=== PATIENT | male | born 1950 | race Caucasian/White ===

== ENCOUNTER → 2023-07-14 11:07 | Outpatient (REF) | payer MEDICARE, OTHER, SELFPAY | LOC: HWRCS 11:07 | PROVIDERS: ATTENDING PHYSICIAN Internal Medicine Interventional Cardiology; FAMILY PHYSICIAN Internal Medicine | DX: I25.2 Old myocardial infarction (principal); I35.0 Nonrheumatic aortic (valve) stenosis; R55 Syncope and collapse | CPT/HCPCS: 93306 ==

== ENCOUNTER → 2023-09-08 14:25 | Outpatient (REF) | payer MEDICARE, OTHER, SELFPAY ==
[2023-09-08 15:49] LABS: % Basophils 1.7 % (0-2); % Eosinophils 0.4 % (0-6); % Immature Granulocytes 0.2 % (0-0.5); % Lymphocytes 30.3 % (20.5-51.1); % Monocytes 12.1 % (1.7-9.3); % Neutrophils 55.3 % (42.2-75.2); Absolute Basophils 0.1 10^3/uL (0-0.2); Absolute Lymphocytes 1.6 10^3/uL (1.2-3.4); Absolute Monocytes 0.6 10^3/uL (0.1-0.6); Absolute Neutrophils 2.9 10^3/uL (1.4-6.5); Hematocrit 35.7 % (39.0-52.0); Hemoglobin 12.3 g/dL (13.0-18.0); Mean Corp Hgb Conc. 34.5 g/dL (33.0-37.0); Mean Corpuscular Hgb 32.2 pg (27.0-31.0); Mean Corpuscular Volume 93.5 fL (80.0-94.0); Mean Platelet Volume 9.2 fL (7.4-10.4); Nucleated Red Blood Cells % 0 % (-); Platelet Count 242 10^3/uL (130-400); Red Blood Cell Count 3.82 10^6/uL (4.70-6.10); Red Cell Dist. Width 11.4 % (11.5-14.5); White Blood Cell Count 5.3 10^3/uL (4.8-10.8)
[2023-09-08 16:05] LABS: ALT (SGPT) 30 U/L (0-50); AST (SGOT) 34 U/L (17-59); Albumin 4.7 g/dl (3.5-5.0); Alkaline Phosphatase 47 U/L (38-126); Blood Urea Nitrogen 18 mg/dl (9-20); Calcium 9.7 mg/dl (8.4-10.2); Carbon Dioxide 25 mmol/L (22-30); Chloride 96 mmol/L (98-107); Glucose 94 mg/dl (70-99); Potassium 4.5 mmol/L (3.5-5.1); Sodium 128 mmol/L (135-145); Total Bilirubin 0.5 mg/dl (0.2-1.3); Total Protein 7.6 g/dl (6.3-8.2); eGFR > 60.00
== END ==
LOC: REG 14:25
PROVIDERS: ATTENDING PHYSICIAN Internal Medicine Cardiovascular Disease; FAMILY PHYSICIAN Internal Medicine
DX: I44.0 Atrioventricular block, first degree (principal); I25.10 Atherosclerotic heart disease of native coronary artery without angina pectoris
CPT/HCPCS: 36415; 80053; 85025

== ENCOUNTER 2023-09-17 08:44 | Day surgery (SDC) | payer MEDICARE, OTHER, SELFPAY ==
[2023-09-17] VITALS (15 sets, daily range): BP systolic 124–164; BP diastolic 64–80; BMI 22.0
--- NOTE | 2023-09-17 12:45 | ITS.CL.PACE ---
Picking Tech - Pacemaker Implant
Pacemaker Implant
Procedure Report:
PACEMAKER IMPLANT REPORT
Primary Care Provider: Dr Wayne Galvan
Primary paper cutting machine operator: Dr Tc Steele
Date of Procedure: September 17, 2023
Procedure:
Implantation of dual-chamber permanent pacemaker utilizing the left bundle branch for conduction system pacing
Indication/Diagnosis:
Non-reversible symptomatic bradycardia due to second atrioventricular block.
After informed consent was obtained, 'time out' was called and confirmed, the patient was prepped and draped in a sterile fashion. Lidocaine with epi was used for local anesthesia. Central venous access was obtained via subclavian venipuncture. An
incision was made along the left chest and a pre-pectoral pocket was formed. Using a Seldinger technique and peel-away sheaths, the pacing leads were placed under fluoroscopic guidance.
Fluoroscopy was used to determine likely anatomic site for left bundle branch pacing. The Medtronic C315 sheath was used to deliver the Medtronic 3830 Selectsecure pacing lead with the helix exposed just exposed from the sheath tip during continuous
monitoring when pacemapping the septum during gentle clockwise rotation to obtain a paced QRS morphology of a W pattern in lead V1. Once the suspected optimal site was identified, lead deployment was performed with several rapid rotations as paced
QRS morphology was intermittently monitored until a paced QRS complex in lead V1 demonstrated development of an R wave (rSR).
Stable VEgm injury current is present throughout lead position and at end of case.
Final unipolar pacing impedance is 720 Ohms
Unipolar pacing threshold is stable at 1 V @ 0.4 ms.
Final conduction system paced QRS complex duration is 108 ms
LVAT is 72 ms and peak V5 -> peak V1 timing is 54 ms
Right atrial lead was placed at the RAA.
Once testing (see below) showed adequate and stable function, the leads were secured using the suture sleeves. The pocket was liberally irrigated with antibiotic solution. The leads were connected to the generator header and the leads and
generator were placed within the pocket. Fluoroscopy confirmed stable lead position. The pocket was closed in the typical fashion.
Fluoroscopy was used to guide lead placement. Fluoroscopic exposure 4.2 min, 8.94 mGy, 1.09 DAP
IMPLANTS:
Medtronic [id number], SN: [id number], Left Pectoral
RA: Medtronic 5076-45, SN: [id number], RAA
RV: Medtronic 3830 , SN:[id number], Interventricular septum at LBB
DEVICE TESTING:
Sensing: RA 1.6 mV, RV 4 mV
Capture: RA 0.75 V@0.4ms, RV 0.25 V@0.4ms (unipolar via the device)
Ohms: RA 589, RV 570 (unipolar via the device)
FINAL PROGRAMMING
Memo Pacing: DDDR 60-130 ppm
COMPLICATIONS:
None
CONCLUSIONS:
1: Successful implant of dual chamber permanent pacemaker utilizing Left Bundle Branch conduction system capture for pacing. Overall findings are most consistent with LBB capture.
RECOMMENDATIONS:
1. Post-op care (tele, CXR, IV abx)
2. In-Office wound check in 5-7 days
Copy to:
Dr Wayne Galvan
Dr Tc Steele
--- NOTE | 2023-09-17 15:31 | W.PN.UPDATE ---
Update Note
Progress Note Update
73 yo WM s/p PPM (same day). He feel good, no cp, sob, radha diet, EKG AV dual paced, L CW Aquacel with pressure dressing in place. CXR no PTX. He will continue ASA/Plavix. Activity restrictions reviewed. He has inc check in 1 week. He will get one
dose of Ancef prior to d/c home at 4pm.
CONCLUSIONS:
1: Successful implant of dual chamber permanent pacemaker utilizing Left Bundle Branch conduction system capture for pacing. Overall findings are most consistent with LBB capture.
RECOMMENDATIONS:
1. Post-op care (tele, CXR, IV abx)
2. In-Office wound check in 5-7 days
Copy to:
Dr Wayne Galvan
Dr Tc Steele
[2023-09-17] MEDS: ANCEF 5 IV (16:09)
== END 2023-09-17 16:15 | disposition home or self-care (01) ==
LOC: CATH 08:44
PROVIDERS: ATTENDING PHYSICIAN Internal Medicine Cardiovascular Disease; FAMILY PHYSICIAN Internal Medicine; OTHER PHYSICIAN Internal Medicine Interventional Cardiology
DX: I44.1 Atrioventricular block, second degree (principal); I10 Essential (primary) hypertension; I25.2 Old myocardial infarction; R55 Syncope and collapse; Z79.02 Long term (current) use of antithrombotics/antiplatelets; I25.10 Atherosclerotic heart disease of native coronary artery without angina pectoris; Z95.5 Presence of coronary angioplasty implant and graft; M51.36 Other intervertebral disc degeneration, lumbar region; Z87.891 Personal history of nicotine dependence
CPT/HCPCS: 33208; 71045; 93005; C1769; C1785; C1892; C1898; Q9967

== ENCOUNTER → 2023-10-22 14:26 | Outpatient (REF) | payer MEDICARE, OTHER, SELFPAY ==
[2023-10-22 15:57] LABS: Osmolality Urine 601 mOsm/kg (300-900)
[2023-10-22 16:04] LABS: Blood Urea Nitrogen 18 mg/dl (9-20); Calcium 9.8 mg/dl (8.4-10.2); Carbon Dioxide 27 mmol/L (22-30); Chloride 100 mmol/L (98-107); Glucose 95 mg/dl (70-99); Potassium 4.3 mmol/L (3.5-5.1); Sodium 136 mmol/L (135-145); eGFR > 60.00
[2023-10-22 16:14] LABS: Urine Sodium 94 mmol/L (30-90)
[2023-10-22 16:36] LABS: TSH Reflex To Free T4 0.94 uIU/ml (0.47-4.68)
== END ==
LOC: REG 14:26
PROVIDERS: ATTENDING PHYSICIAN Internal Medicine Medical Oncology; FAMILY PHYSICIAN Internal Medicine
DX: E87.1 Hypo-osmolality and hyponatremia (principal)
CPT/HCPCS: 36415; 80048; 82570; 83935; 84300; 84443

== ENCOUNTER 2023-12-29 12:56 | Emergency (ER) | payer MEDICARE, OTHER, SELFPAY ==
[2023-12-29 12:59] VITALS: BP 157/97
[2023-12-29 13:18] LABS: % Basophils 1.6 % (0-2); % Eosinophils 2.2 % (0-6); % Immature Granulocytes 0.2 % (0-0.5); % Lymphocytes 23.9 % (20.5-51.1); % Neutrophils 59.1 % (42.2-75.2); Absolute Basophils 0.1 10^3/uL (0-0.2); Absolute Eosinophils 0.1 10^3/uL (0-0.7); Absolute Lymphocytes 1.2 10^3/uL (1.2-3.4); Absolute Monocytes 0.6 10^3/uL (0.1-0.6); Absolute Neutrophils 2.9 10^3/uL (1.4-6.5); Hematocrit 34.2 % (39.0-52.0); Hemoglobin 12.4 g/dL (13.0-18.0); Mean Corp Hgb Conc. 36.3 g/dL (33.0-37.0); Mean Corpuscular Hgb 32.9 pg (27.0-31.0); Mean Corpuscular Volume 90.7 fL (80.0-94.0); Mean Platelet Volume 8.4 fL (7.4-10.4); Nucleated Red Blood Cells % 0 % (-); Platelet Count 236 10^3/uL (130-400); Red Blood Cell Count 3.77 10^6/uL (4.70-6.10); Red Cell Dist. Width 11.3 % (11.5-14.5); White Blood Cell Count 4.9 10^3/uL (4.8-10.8)
[2023-12-29 13:36] LABS: ALT (SGPT) 26 U/L (0-50); AST (SGOT) 40 U/L (17-59); Albumin 4.9 g/dl (3.5-5.0); Alkaline Phosphatase 48 U/L (38-126); Blood Urea Nitrogen 16 mg/dl (9-20); Calcium 9.9 mg/dl (8.4-10.2); Carbon Dioxide 28 mmol/L (22-30); Chloride 96 mmol/L (98-107); Glucose 92 mg/dl (70-99); Potassium 4.4 mmol/L (3.5-5.1); Sodium 131 mmol/L (135-145); Total Bilirubin 0.6 mg/dl (0.2-1.3); Total Protein 7.9 g/dl (6.3-8.2); eGFR > 60.00
[2023-12-29 13:41] LABS: Troponin I < 0.012 ng/ml
[2023-12-29 13:57] VITALS: BP 179/97
[2023-12-29 14:00] VITALS: BP 154/84
[2023-12-29 15:00] VITALS: BP 137/75
--- NOTE | 2023-12-29 15:19 | ED.GENMED ---
History of Present Illness
General
Chief Complaint: Chest Pain
Source: patient and physician (Dr. Wayne Galvan called to say he is sending patient here from his office.)
Exam Limitations: none
Time Seen by Provider: 12/29/23 15:04
History of Present Illness
History of Present Illness:
73-year-old male with history of neuropathy, systolic syndrome, CAD, HTN, HLD, mitral regurg, Aortic stenosis,MA, BPH, anemia, anxiety, pacemaker 09/2023, cardiac cath with stents 07/2015 and 10/2015.
Pt PCP Dr. Jurado called in. Sending pt from office for intermittent chest discomfort past few days, two days ago had near syncopal episode. Patient arrives stating he has had
11 years of intermittent generalized chest discomfort in various areas. He states the episodes have been much less since he got his pacemaker. Patient states 4 days ago after playing tennis he felt similar intermittent chest 'discomfort,
generalized' similar to what he has felt in the past. 2 days ago he had breakfast, got dressed and was ready to go out shopping when he was standing by his front door and he felt like he was going to faint. His took him and sat him down and
he states he felt better after sitting down and drinking some electrolyte water. He states the whole episode lasted just less than a minute as he felt better when he sat down.
He has been waking up in the middle of the night and having difficulty getting back to sleep recently. Today at 3:45 AM he woke up because he 'just did not feel good, it is hard to describe' and he took 2 nitroglycerin tablets and eventually fell
back asleep. He did not have any chest pain or shortness of breath at that time. He has had no N/V/D/sleep. Denies CP, SOB, abd pain.
He did start lifting light weights of 10 pounds a month ago, he has not done any lifting in the past 3 days.
Past History
Past History
ED Past Medical History: CAD, HTN, Hypercholesterolemia, MA and Other (Hyponatremia, MVP, vertigo, BPH, anxiety)
ED Past Surgical History: Cardiac (Cardiac catheterization 07/13/2015 mid RCA stent, Stents X2, MA with stenting x2 04/2022.) and Tonsilectomy
Social History
Tobacco: Former smoker
Alcohol: Occasional
Drug: None
Personal:
Living: with family
Employment: Retired
Family History
Family History: CAD
Review of Systems
Review of Systems
Allergies reviewed?: Yes
All Other Systems: ROS reviewed and negative except as documented in HPI and ROS
Constitutional: Denies fever or fatigue
Respiratory: Denies trouble breathing
Cardiac: Reports chest pain; Denies diaphoresis, palpitations or syncope
ABD/GI: Denies abdominal pain, nausea, vomiting or diarrhea
: Denies dysuria or difficulty voiding
Musculoskeletal: Reports no symptoms
Skin: Reports no symptoms
Neurological: Reports no symptoms
Phy Exam
Physical Exam
Physical Exam:
GENERAL: No acute distress. A&Ox3.
CONSTITUTIONAL: Afebrile.
EYES: Clear, conjunctivae normal
ENMT: moist mucus membranes, Pharynx nl
RESPIRATORY: Regular respirations, nonlabored, lungs clear.
CARDIOVASCULAR: Regular rate and rhythm, no murmurs, no rubs.
GI: Soft, nontender, normal BS
MUSCULOSKELETAL: Moves with ease. Well perfused. No edema
SKIN: Warm, dry, pink
PSYCH: Normal mood and affect. Well kept, interactive and appropriate
NEUROLOGIC: Awake, alert and oriented. No focal neurological deficits
Scores
Heart Score for Chest Pain Patients
STEMI patient?: Not applicable
Course
Orders/Labs/Results
Orders:
Orders
12/29/23 13:05
Electrocardiogram (*1) Urgent
Reason for Study: Chest Pain
EKG- Treatment ONCE
12/29/23 13:12
CMP [Comprehensive Metabolic Panel] Urgent
Complete Blood Count/With Diff Urgent
Troponin I Urgent
12/29/23 15:07
CR Chest - 2 Views Urgent
Comment:
Reason For Exam: chest pain
12/29/23 16:01
Troponin I Urgent
Abnormal Lab Results
12/29/23
13:12
RBC 3.77 L 10^6/uL
(4.70-6.10)
Hgb 12.4 L g/dL
(13.0-18.0)
Hct 34.2 L %
(39.0-52.0)
MCH 32.9 H pg
(27.0-31.0)
RDW 11.3 L %
(11.5-14.5)
Monocytes % 13.0 H %
(1.7-9.3)
Sodium 131 L mmol/L
(135-145)
Chloride 96 L mmol/L
(98-107)
12/29/23 13:12
12/29/23 13:12
Vital Signs
Initial and Last Documented VS:
Initial Vital Signs
Temp Pulse Resp BP Pulse Ox
97.5 F 74 16 157/97 100
12/29/23 12:59 12/29/23 12:59 12/29/23 12:59 12/29/23 12:59 12/29/23 12:59
Last Documented Vital Signs
Temp Pulse Resp BP Pulse Ox
97.5 F 62 17 135/71 100
12/29/23 12:59 12/29/23 17:00 12/29/23 17:00 12/29/23 17:00 12/29/23 17:00
MDM/Problems Addressed
Differential Diagnosis Includes:
ACS, Unstable angina, musculoskeletal pain
MDM/Problems Addressed:
73-year-old male with history of neuropathy, systolic syndrome, CAD, HTN, HLD, mitral regurg, Aortic stenosis,MA, BPH, anemia, anxiety, pacemaker 09/2023, cardiac cath with stents 07/2015 and 10/2015.
Pt PCP Dr. Jurado called in. Sending pt from office for intermittent chest discomfort past few days, two days ago had near syncopal episode. Patient arrives stating he has had
11 years of intermittent generalized chest discomfort in various areas. He states the episodes have been much less since he got his pacemaker. Patient states 4 days ago after playing tennis he felt similar intermittent chest 'discomfort,
generalized' similar to what he has felt in the past. 2 days ago he had breakfast, got dressed and was ready to go out shopping when he was standing by his front door and he felt like he was going to faint. His took him and sat him down and
he states he felt better after sitting down and drinking some electrolyte water. He states the whole episode lasted just less than a minute as he felt better when he sat down.
He has been waking up in the middle of the night and having difficulty getting back to sleep recently. Today at 3:45 AM he woke up because he 'just did not feel good, it is hard to describe' and he took 2 nitroglycerin tablets and eventually fell
back asleep. He did not have any chest pain or shortness of breath at that time. He has had no N/V/D/sleep. Denies CP, SOB, abd pain.
He did start lifting light weights of 10 pounds a month ago, he has not done any lifting in the past 3 days.
EKG atrial paced rhythm, LVH, rate 72
3:00 PM:
CBC with no clinically significant abnormality
CMP with no clinically significant abnormality troponin #1 normal
CXR: NAD
Plan: If second troponin neg, pt stable for discharge. He has a prescheduled appointment with his Manager Library Dr. Steele in 7 days.
Troponin #2 normal. Patient notified he is stable for discharge
Dr. Wayne Galvan updated
*EKG
EKG Intrepretation Date: 12/29/23
Interpretation: abnormal
Heart Rate: 72
Rate: normal
Rhythm: av sequential
Galva: left axis deviation
QRS Pattern: wide non-specific
Ischemia: no ischemia
*Critical Care Note
Total Time (30-74mins, 75-104mins- exclusive of procedures): Not Applicable
ED Attending Note
-
Portions of this chart may have been created with voice recognition software.� Occasional wrong word or��sound alike� substitutions may have occurred due to the inherent limitations of voice recognition software.
Discharge Plan
Departure
Patient Disposition: Home (Routine Discharge)
Date of Disposition: 12/29/23
Time of Disposition: 16:55
Patient with high blood pressure during this ER visit?: No
Condition: Good
Discharge Problem:
Atypical chest pain
Instructions: Chest Pain That Is Not Caused by the Heart (DC)
Prescriptions:
No Action
alprazolam 0.25 mg Tablet
0.125 mg PO BIDPRN PRN (Reason: vertigo or agitated sleep)
ascorbic acid (vitamin C) 500 mg Tablet
500 mg PO HS
nitroglycerin 0.4 mg Tablet, Sublingual
0.4 mg SUBLINGUAL [id number] PRN (Reason: CHEST PAIN)
coenzyme Q10 [CoQ-10] 100 mg Capsule
100 mg PO DAILY
aspirin 81 mg Tablet,Delayed Release (Dr/Ec)
81 mg PO DAILY
Myosedate
1 tab PO HSPRN PRN (Reason: sleep and muscle relaxation)
Praluent Pen 75 mg/mL pen injector
75 mg SC Q2W
acetaminophen 650 mg Tablet Extended Release
1,300 mg PO [id number] PRN (Reason: mild pain)
amlodipine [Norvasc] 2.5 mg tablet
1.25 mg PO HS
gabapentin [Neurontin] 600 mg Tablet
600 - 700 mg PO HS
clopidogrel [Plavix] 75 mg Tablet
75 mg PO QPM
ezetimibe [Zetia] 10 mg Tablet
5 mg PO HS
omega 3-eod-qfn-fish oil [Fish Oil] 1,200 (144-216) mg Capsule
1 cap PO HS
Magnesium Maleate
360 mg PO QHS
zinc 15 mg Tablet
30 mg PO DAILY
Probiotic 50 Billion
1 tab PO DAILY
Vitalmin B Complex Sophia
1 tab PO DAILY
Vitamin D W K1 2000 Iu
2 tab PO DAILY
Wobenzym N
2 tab PO DAILY
Homocysteine Formula 0.8-50-100 mg-mg-mcg Tablet
1 tab PO NOON
Curcumin Evail
400 mg PO DAILY
Referrals:
Tc Steele MD [Active] - Keep scheduled appt
Wayne Galvan MD [Family Provider] -
Activity Restrictions/Additional Instructions:
As we discussed, nothing worrisome in your workup here today
Keep appointment with your green feed attendant next week.
Interventions
Interventions:
*Risk Screen - Suicide Last Done: 12/29/23 14:25
*General Assessment Last Done: 12/29/23 12:59
*Neglect/Abuse Screening Last Done: 12/29/23 14:25
ED- Fall Risk Assessment Last Done: 12/29/23 17:28
*ED COVID-19 Vaccine History Last Done: 12/29/23 12:59
*Nursing Disposition Last Done: 12/29/23 17:28
ED- Cardiac Assessment Last Done: 12/29/23 14:25
Discharge Date and Time
Discharge Date/Time: 12/29/23 17:29
Print Language: [id number]
[2023-12-29 16:00] VITALS: BP 158/83
[2023-12-29 16:48] LABS: Troponin I < 0.012 ng/ml
[2023-12-29 17:00] VITALS: BP 135/71
== END 2023-12-29 17:29 | disposition home or self-care (01) ==
LOC: EMR 12:56
PROVIDERS: Registered Nurse; EMERGENCY PHYSICIAN Emergency Medicine; FAMILY PHYSICIAN Internal Medicine
DX: R55 Syncope and collapse (principal); R07.89 Other chest pain; I10 Essential (primary) hypertension; I35.0 Nonrheumatic aortic (valve) stenosis; F41.9 Anxiety disorder, unspecified; E78.00 Pure hypercholesterolemia, unspecified; N40.0 Benign prostatic hyperplasia without lower urinary tract symptoms; I25.2 Old myocardial infarction; Z95.0 Presence of cardiac pacemaker; Z87.891 Personal history of nicotine dependence; Z79.02 Long term (current) use of antithrombotics/antiplatelets; I25.10 Atherosclerotic heart disease of native coronary artery without angina pectoris; Z88.8 Allergy status to other drugs, medicaments and biological substances
CPT/HCPCS: 99283; 71046; 80053; 84484; 85025; 93005

== ENCOUNTER 2024-02-16 03:58 | Emergency (ER) | payer MEDICARE, OTHER, SELFPAY ==
[2024-02-16 04:03] VITALS: BP 132/76
--- NOTE | 2024-02-16 04:11 | ED.GENMED ---
History of Present Illness
<Preston Durbin DO - Last Filed: 02/16/24 04:49>
General
Chief Complaint: Cardiac Symptoms
Time Seen by Provider: 02/16/24 04:11
<ROCIO Garcia - Last Filed: 02/18/24 05:51>
History of Present Illness
History of Present Illness:
Patient is a 73 year old male with a PMH of CAD and AL presents to the ED with chest pain x 3 hours. The pain woke him up from sleep and says its a dull achy pain. He states it feels different from his last AL in 2021. It was rated a 5/10 and stated
to be generalized throughout the entire chest. He woke up at 1a with chest pain SOB and palpitations and took a nitroglycerin which alleviated symptoms. He then woke up again at 3 and 3:30a and took 2 more nitroglycerin which did not work. The
patient admits to generalized fatigue from not being able to sleep but denies any BLUM abdominal pain nausea dizziness light headedness.
Patient has taken 3 nitroglycerin and 5 aspirin 81mg for his chest pain, and has had 2 STEMI's in 2015 and 2021. He also has a history of CAD. Patient is a former smoker with occasional alcohol use.
Past History
<ROCIO Garcia - Last Filed: 02/18/24 05:51>
Past History
ED Past Medical History: CAD, HTN, Hypercholesterolemia, AL and Other (Hyponatremia, MVP, vertigo, BPH, anxiety)
ED Past Surgical History: Cardiac (Cardiac catheterization 07/13/2015 mid RCA stent, Stents X2, AL with stenting x2 04/2022.) and Tonsilectomy
Social History
Tobacco: Former smoker
Alcohol: Occasional
Drug: None
Personal:
Living: with family
Employment: Retired
Family History
Family History: CAD
Review of Systems
<ROCIO Garcia - Last Filed: 02/18/24 05:51>
Review of Systems
Constitutional: Reports sleep disturbance
Respiratory: Reports trouble breathing
Cardiac: Reports chest pain and palpitations
ABD/GI: Reports no symptoms
Neurological: Reports no symptoms
Phy Exam
<Davidevangelina Gamboa [facility] - Last Filed: 02/18/24 05:51>
Physical Exam
Physical Exam:
see physical
Cardiovascular Exam
Cardiovascular Exam: regular rate/rhythm, no edema, no gallop, no JVD and no murmur
Pulmonary Exam
Pulmonary Exam: lungs clear, no respiratory distress, no rales, chest non tender, no crackles, no rhonchi, no stridor, no wheezing and no cough
Course
<Preston Durbin, DO - Last Filed: 02/16/24 04:49>
Orders/Labs/Results
Orders:
Orders
02/16/24
Electrocardiogram (*1) Stat
Reason for Study: Other
Comment: already done
02/16/24 03:59
Electrocardiogram (*1) Urgent
Reason for Study: Chest Pain
02/16/24 04:00
EKG- Treatment ONCE
02/16/24 04:18
Complete Blood Count/With Diff Urgent
Comprehensive Metabolic Panel Urgent
Troponin I Urgent
02/16/24 06:04
Interrogate Pacemaker- Treatment ONCE
02/16/24 07:45
Troponin I Urgent
Abnormal Lab Results
02/16/24
04:18
RBC 3.66 L 10^6/uL
(4.70-6.10)
Hgb 12.0 L g/dL
(13.0-18.0)
Hct 32.8 L %
(39.0-52.0)
MCH 32.8 H pg
(27.0-31.0)
RDW 11.3 L %
(11.5-14.5)
Absolute Monos (auto) 0.7 H 10^3/uL
(0.1-0.6)
Monocytes % 11.1 H %
(1.7-9.3)
02/16/24 04:18
02/16/24 04:18
Vital Signs
Initial and Last Documented VS:
Initial Vital Signs
Temp Pulse Resp BP Pulse Ox
98 F 62 24 132/76 100
02/16/24 04:03 02/16/24 04:03 02/16/24 04:03 02/16/24 04:03 02/16/24 04:03
Last Documented Vital Signs
Temp Pulse Resp BP Pulse Ox
98 F 60 15 137/76 98
02/16/24 04:03 02/16/24 09:00 02/16/24 09:00 02/16/24 09:00 02/16/24 09:00
<ROCIO Garcia - Last Filed: 02/18/24 05:51>
Orders/Labs/Results
Orders:
Orders
02/16/24
Electrocardiogram (*1) Stat
Reason for Study: Other
Comment: already done
02/16/24 03:59
Electrocardiogram (*1) Urgent
Reason for Study: Chest Pain
02/16/24 04:00
EKG- Treatment ONCE
02/16/24 04:18
Complete Blood Count/With Diff Urgent
Comprehensive Metabolic Panel Urgent
Troponin I Urgent
02/16/24 06:04
Interrogate Pacemaker- Treatment ONCE
02/16/24 07:45
Troponin I Urgent
Abnormal Lab Results
02/16/24
04:18
RBC 3.66 L 10^6/uL
(4.70-6.10)
Hgb 12.0 L g/dL
(13.0-18.0)
Hct 32.8 L %
(39.0-52.0)
MCH 32.8 H pg
(27.0-31.0)
RDW 11.3 L %
(11.5-14.5)
Absolute Monos (auto) 0.7 H 10^3/uL
(0.1-0.6)
Monocytes % 11.1 H %
(1.7-9.3)
02/16/24 04:18
02/16/24 04:18
Vital Signs
Initial and Last Documented VS:
Initial Vital Signs
Temp Pulse Resp BP Pulse Ox
98 F 62 24 132/76 100
02/16/24 04:03 02/16/24 04:03 02/16/24 04:03 02/16/24 04:03 02/16/24 04:03
Last Documented Vital Signs
Temp Pulse Resp BP Pulse Ox
98 F 60 15 137/76 98
02/16/24 04:03 02/16/24 09:00 02/16/24 09:00 02/16/24 09:00 02/16/24 09:00
<Naseem Roberts MD - Last Filed: 02/16/24 08:26>
Orders/Labs/Results
Orders:
Orders
02/16/24
Electrocardiogram (*1) Stat
Reason for Study: Other
Comment: already done
02/16/24 03:59
Electrocardiogram (*1) Urgent
Reason for Study: Chest Pain
02/16/24 04:00
EKG- Treatment ONCE
02/16/24 04:18
Complete Blood Count/With Diff Urgent
Comprehensive Metabolic Panel Urgent
Troponin I Urgent
02/16/24 06:04
Interrogate Pacemaker- Treatment ONCE
02/16/24 07:45
Troponin I Urgent
Abnormal Lab Results
02/16/24
04:18
RBC 3.66 L 10^6/uL
(4.70-6.10)
Hgb 12.0 L g/dL
(13.0-18.0)
Hct 32.8 L %
(39.0-52.0)
MCH 32.8 H pg
(27.0-31.0)
RDW 11.3 L %
(11.5-14.5)
Absolute Monos (auto) 0.7 H 10^3/uL
(0.1-0.6)
Monocytes % 11.1 H %
(1.7-9.3)
02/16/24 04:18
02/16/24 04:18
Vital Signs
Initial and Last Documented VS:
Initial Vital Signs
Temp Pulse Resp BP Pulse Ox
98 F 62 24 132/76 100
02/16/24 04:03 02/16/24 04:03 02/16/24 04:03 02/16/24 04:03 02/16/24 04:03
Last Documented Vital Signs
Temp Pulse Resp BP Pulse Ox
98 F 60 15 137/76 98
02/16/24 04:03 02/16/24 09:00 02/16/24 09:00 02/16/24 09:00 02/16/24 09:00
<ROCIO Garcia - Last Filed: 02/18/24 05:51>
MDM/Problems Addressed
Differential Diagnosis Includes:
unstable angina, CAD, STEMI
MDM/Problems Addressed:
order EKG CBC and cardiac enzymes, give plavix
<Preston Durbin DO - Last Filed: 02/16/24 04:49>
*EKG
Interpreted by ED Provider?: Yes
Interpretation: abnormal (Paced rhythm, normal axis, ST depressions inferiorly, no STEMI)
<ROCIO Garcia - Last Filed: 02/18/24 05:51>
*Critical Care Note
Total Time (30-74mins, 75-104mins- exclusive of procedures): Not Applicable
<Naseem Roberts MD - Last Filed: 02/16/24 08:26>
Update Note
Update Note:
UPDATE (Naseem Roberts MD)
I have seen and evaluated the patient after signout and reviewed all labs and imaging.
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 He
reports that he was having a restless night, was laying in bed at around 1 AM and noticed that he started to have chest pain. He describes a dull aching substernal sensation. He says that it lasted for about 15 to 20 minutes and then he took a
nitroglycerin and he says his symptoms resolved shortly thereafter. He says that he try to get some more rest but around 3 AM his symptoms returned. He says that once again after about 15 to 20 minutes he took a nitroglycerin and this did not help
and then about 15 minutes later he took a second nitroglycerin and this did not help and so he decided to come to the ER to be evaluated. He says that on arrival in the ER he was still having some chest pain but shortly after arrival it resolved
without any additional intervention. Currently on my assessment he is chest pain-free. He says he did have some heavy breathing/shortness of breath associate with the chest pain. No nausea, vomiting, diaphoresis. He had 2 prior stents/MIs�he
says that symptoms are different from his prior MIs in quality�previously says that he felt 'washed out' and that his chest pain was 'more sharp.' He follows with Dr. Steele for cardiology.
Physical exam: Awake alert not in distress. Vital signs normal. No cardiac rubs gallops or murmurs appreciated. Lungs clear to auscultation bilaterally. Extremities warm well-perfused.
Medical Decision Makin-year-old male with medical history as documented presents after chest pain last night. Had an episode at 1 AM that resolved with nitro, recurrence of chest pain at around 3 AM that did not improve after 2 doses of
nitroglycerin, resolved about an hour later shortly after arrival in the ER. Currently chest pain-free. Normal vitals, physical exam as above. EKG shows paced rhythm. Had initial labs sent off including a CBC which showed marginal anemia, CMP
which was unremarkable. His initial troponin is undetectable. Device interrogated and 1 episode of NSVT otherwise unremarkable. Continue to monitor, repeat troponin pending.
Repeat troponin undetectable�2 undetectable troponins rules out acute AL. Has been chest pain-free since shortly after arrival here in the ER. Symptoms atypical for angina and he has not had any exertional symptoms recently. Nevertheless he is
high risk given his medical history--will refer for expedited follow-up of ER chest pain hotline. Patient comfortable this plan. All questions answered.
ED Attending Note
<Preston Durbin, DO - Last Filed: 02/16/24 04:49>
ED Attending Note
Patient seen and examined by attending physician: Yes
I performed the substantive portion of visit, reviewed & personally made and approve the management plan that is documented in note by myself or CEFERINO.: Yes
ED Attending Note:
I have seen and evaluated the patient with a [id number] encounter. I have spoken to the advance practicer provider and involved in the medical history, the physical exam, medical decision making.
Evaluation and management service: agree unless noted differently below.
Results interpretation: agree unless noted differently below.
Focused HPI: 73-year-old male presenting with central chest discomfort and shortness of breath. Woke him up from sleep around 1 AM. He took 1 nitroglycerin and symptoms appear to resolve. Patient was concerned because symptoms returned. Given
his prior history of coronary artery disease with multiple stents, patient got nervous.
Physical exam: Sitting in bed comfortably. Mildly anxious. Heart regular rate and rhythm. No leg edema
Medical Decision Making: EKG appears unchanged from prior. EKG shows T wave inversions and ST depressions inferiorly but appears unchanged from prior. Given his history, will obtain troponin and discussed case with cardiology
Update 4:45AM: Case discussed with [employer] and no acute events noted today
<ROCIO Garcia - Last Filed: 02/18/24 05:51>
-
Portions of this chart may have been created with voice recognition software.� Occasional wrong word or��sound alike� substitutions may have occurred due to the inherent limitations of voice recognition software.
Discharge Plan
Departure
Patient Disposition: Home (Routine Discharge)
Date of Disposition: 02/16/24
Time of Disposition: 08:56
Patient with high blood pressure during this ER visit?: No
Discharge Problem:
Chest pain
Instructions: Chest Pain CBC Follow Up
Prescriptions:
No Action
alprazolam 0.25 mg Tablet
0.125 mg PO BIDPRN PRN (Reason: vertigo or agitated sleep)
ascorbic acid (vitamin C) 500 mg Tablet
500 mg PO HS
nitroglycerin 0.4 mg Tablet, Sublingual
0.4 mg SUBLINGUAL [id number] PRN (Reason: CHEST PAIN)
coenzyme Q10 [CoQ-10] 100 mg Capsule
100 mg PO DAILY
aspirin 81 mg Tablet,Delayed Release (Dr/Ec)
81 mg PO DAILY
Myosedate
1 tab PO HSPRN PRN (Reason: sleep and muscle relaxation)
Praluent Pen 75 mg/mL pen injector
75 mg SC Q2W
acetaminophen 650 mg Tablet Extended Release
1,300 mg PO [id number] PRN (Reason: mild pain)
amlodipine [Norvasc] 2.5 mg tablet
1.25 mg PO HS
gabapentin [Neurontin] 600 mg Tablet
600 - 700 mg PO HS
clopidogrel [Plavix] 75 mg Tablet
75 mg PO QPM
ezetimibe [Zetia] 10 mg Tablet
5 mg PO HS
omega 9-xqf-zji-fish oil [Fish Oil] 1,200 (144-216) mg Capsule
1 cap PO HS
Magnesium Maleate
360 mg PO QHS
zinc 15 mg Tablet
30 mg PO DAILY
Probiotic 50 Billion
1 tab PO DAILY
Vitalmin B Complex [place]
1 tab PO DAILY
Vitamin D W K1 2000 Iu
2 tab PO DAILY
Wobenzym N
2 tab PO DAILY
Homocysteine Formula 0.8-50-100 mg-mg-mcg Tablet
1 tab PO NOON
Curcumin Evail
400 mg PO DAILY
Referrals:
Tc Steele MD [Active] - Follow up in 2-3 days
Wayne Galvan MD [Family Provider] -
Activity Restrictions/Additional Instructions:
Thank you for visiting the Emergency Department at [facility].
1. Please schedule a follow up appointment as directed. Call first thing tomorrow morning to make an appointment.
2. If indicated, please take your medications as instructed and indicated on discharge paperwork.
3. If any of your symptoms do not improve, or persist, or become more severe within 6-12 hours, please return to the emergency department for further care.
4. Please return to the emergency department if you develop a headache, neck pain/stiffness, fever greater than 100.4F, chest pain, shortness of breath, persistent nausea, vomiting, slurred speech, difficulty walking, numbness/tingling, weakness,
signs of infection or any other symptoms that are worrisome to you.
Please call [phone] if you have any questions.
Interventions
Interventions:
*Risk Screen - Suicide Last Done: 02/16/24 04:03
*General Assessment Last Done: 02/16/24 04:20
*Neglect/Abuse Screening Last Done: 02/16/24 04:20
*ED COVID-19 Vaccine History Last Done: 02/16/24 04:20
*Nursing Disposition Last Done: 02/16/24 09:18
ED- Pulmonary Assessment Last Done: 02/16/24 08:22
ED- Cardiac Assessment Last Done: 02/16/24 08:22
Discharge Date and Time
Discharge Date/Time: 02/16/24 09:18
Print Language: SRI LANKAN
[2024-02-16 04:20] VITALS: BMI 22.6
[2024-02-16 04:38] LABS: % Basophils 1.4 % (0-2); % Eosinophils 0.5 % (0-6); % Immature Granulocytes 0.5 % (0-0.5); % Lymphocytes 29.7 % (20.5-51.1); % Monocytes 11.1 % (1.7-9.3); % Neutrophils 56.8 % (42.2-75.2); Absolute Basophils 0.1 10^3/uL (0-0.2); Absolute Lymphocytes 1.8 10^3/uL (1.2-3.4); Absolute Monocytes 0.7 10^3/uL (0.1-0.6); Absolute Neutrophils 3.4 10^3/uL (1.4-6.5); Hematocrit 32.8 % (39.0-52.0); Mean Corp Hgb Conc. 36.6 g/dL (33.0-37.0); Mean Corpuscular Hgb 32.8 pg (27.0-31.0); Mean Corpuscular Volume 89.6 fL (80.0-94.0); Mean Platelet Volume 8.9 fL (7.4-10.4); Nucleated Red Blood Cells % 0 % (-); Platelet Count 233 10^3/uL (130-400); Red Blood Cell Count 3.66 10^6/uL (4.70-6.10); Red Cell Dist. Width 11.3 % (11.5-14.5); White Blood Cell Count 5.9 10^3/uL (4.8-10.8)
[2024-02-16 05:00] LABS: ALT (SGPT) 21 U/L (0-50); AST (SGOT) 33 U/L (17-59); Albumin 4.3 g/dl (3.5-5.0); Alkaline Phosphatase 45 U/L (38-126); Blood Urea Nitrogen 17 mg/dl (9-20); Carbon Dioxide 28 mmol/L (22-30); Chloride 98 mmol/L (98-107); Estimated Creatinine Clearance 75 ml/min; Glucose 90 mg/dl (70-99); Potassium 4.3 mmol/L (3.5-5.1); Sodium 135 mmol/L (135-145); Total Bilirubin 0.4 mg/dl (0.2-1.3); Total Protein 7.2 g/dl (6.3-8.2); eGFR > 60.00
[2024-02-16 05:12] LABS: Troponin I < 0.012 ng/ml
[2024-02-16 06:00] VITALS: BP 144/98
[2024-02-16 07:00] VITALS: BP 156/88
[2024-02-16 08:00] VITALS: BP 131/78
[2024-02-16 08:14] LABS: Troponin I < 0.012 ng/ml
[2024-02-16 09:00] VITALS: BP 137/76
== END 2024-02-16 09:18 | disposition home or self-care (01) ==
LOC: EMR 03:58
PROVIDERS: EMERGENCY PHYSICIAN Student in an Organized Health Care Education/Training Program; FAMILY PHYSICIAN Internal Medicine
DX: R07.89 Other chest pain (principal); I25.10 Atherosclerotic heart disease of native coronary artery without angina pectoris; Z87.891 Personal history of nicotine dependence; Z95.0 Presence of cardiac pacemaker
CPT/HCPCS: 99284; 93288; 80053; 84484; 85025; 93005

== ENCOUNTER → 2024-03-11 07:52 | Outpatient (REF) | payer MEDICARE, OTHER, SELFPAY | LOC: DHCBC/DCA 07:52 | PROVIDERS: ATTENDING PHYSICIAN Nurse Practitioner; FAMILY PHYSICIAN Internal Medicine | DX: R07.9 Chest pain, unspecified (principal) | CPT/HCPCS: 78452; 93017; A9500; J2785 ==

== ENCOUNTER 2024-10-13 14:27 | Inpatient (IN) | payer MEDICARE, OTHER, SELFPAY ==
[2024-10-13 10:42] VITALS: BP 118/73; BMI 23.1
[2024-10-13 11:00] VITALS: BP 117/72
[2024-10-13] MEDS: NITROSTAT (SUBLINGUAL) 0.4 MG SL (11:01)
[2024-10-13 11:06] LABS: % Basophils 1.6 % (0-2); % Eosinophils 0.8 % (0-6); % Immature Granulocytes 0.2 % (0-0.5); % Lymphocytes 32.9 % (20.5-51.1); % Neutrophils 53.5 % (42.2-75.2); Absolute Basophils 0.1 10^3/uL (0-0.2); Absolute Lymphocytes 1.6 10^3/uL (1.2-3.4); Absolute Monocytes 0.5 10^3/uL (0.1-0.6); Absolute Neutrophils 2.6 10^3/uL (1.4-6.5); Hematocrit 31.5 % (39.0-52.0); Hemoglobin 11.1 g/dL (13.0-18.0); Mean Corp Hgb Conc. 35.2 g/dL (33.0-37.0); Mean Corpuscular Hgb 32.4 pg (27.0-31.0); Mean Corpuscular Volume 91.8 fL (80.0-94.0); Mean Platelet Volume 8.8 fL (7.4-10.4); Nucleated Red Blood Cells % 0 % (-); Platelet Count 250 10^3/uL (130-400); Red Blood Cell Count 3.43 10^6/uL (4.70-6.10); Red Cell Dist. Width 11.5 % (11.5-14.5); White Blood Cell Count 4.9 10^3/uL (4.8-10.8)
[2024-10-13 11:14] LABS: ALT (SGPT) 20 U/L (0-50); AST (SGOT) 28 U/L (17-59); Alkaline Phosphatase 31 U/L (38-126); Blood Urea Nitrogen 15 mg/dl (9-20); Calcium 9.6 mg/dl (8.4-10.2); Carbon Dioxide 29 mmol/L (22-30); Chloride 100 mmol/L (98-107); Estimated Creatinine Clearance 66 ml/min; Glucose 119 mg/dl (70-99); Potassium 4.2 mmol/L (3.5-5.1); Sodium 134 mmol/L (135-145); Total Bilirubin 0.4 mg/dl (0.2-1.3); Total Protein 6.8 g/dl (6.3-8.2); eGFR > 60.00
--- NOTE | 2024-10-13 11:14 | ED.GENMED ---
History of Present Illness
General
Chief Complaint: Chest Pain
Source: patient, records and previous hospital records
Exam Limitations: none
Time Seen by Provider: 10/13/24 10:40
Nursing documentation reviewed up to this point in time: agreed with
History of Present Illness
History of Present Illness:
73-year-old male CAD patient Dr. Paz has a pacemaker presents with chest pain onset about a week ago pressure in his chest somewhat reminiscent of his prior angina require stenting, had a for few days and stopped today returned again pressure
in his chest with nausea took 3 sublingual nitro still with 4 out of 10 pain did take 3 extra baby aspirin 911 was called he has a pacemaker
Past History
Past History
ED Past Medical History: CAD, HTN, Hypercholesterolemia, SD and Other (Hyponatremia, MVP, vertigo, BPH, anxiety)
ED Past Surgical History: Cardiac (Cardiac catheterization 07/13/2015 mid RCA stent, Stents X2, SD with stenting x2 04/2022.) and Tonsilectomy
Social History
Tobacco: Former smoker
Alcohol: Occasional
Drug: None
Personal:
Living: with family
Employment: Retired
Family History
Family History: CAD
Review of Systems
Review of Systems
All Other Systems: Not applicable
Constitutional: Reports fatigue; Denies fever
Respiratory: Reports no symptoms
Cardiac: Reports chest pain
ABD/GI: Reports nausea
Phy Exam
Physical Exam
Physical Exam:
Physical Exam
General: no apparent distress, not acutely ill
Neck: No jaundice
Heart: s1/s2 regular rate and rhythm, no murmur. equal radial pulses.
Lungs: no acute respiratory distress. clear bilaterally
Abdomen: Nontender
Neuro: alert and oriented. no focal neurological deficits
Skin: no rash
Psychiatric: well kept. interactive and cooperative
Extremities: no edema.
Scores
Heart Score for Chest Pain Patients
STEMI patient?: No
History: Moderately Suspicious
ECG: Nonspecific Repolarization
Age: >/= 65 years
Risk Factors: >/= 3 Risk Factors or History of CAD
Troponin: </= Normal Limit
Heart Score for Chest Pain Patients: 6
Heart Score Risk: 20.3% MACE over next 6 weeks
Course
Orders/Labs/Results
Orders:
Orders
10/13/24 10:39
EKG [Electrocardiogram (*1)] Urgent
Reason for Study: Chest Pain
EKG- Treatment ONCE
10/13/24 10:48
Complete Blood Count/With Diff Urgent
Comprehensive Metabolic Panel Urgent
PTT Urgent
Troponin I Urgent
10/13/24 10:55
Aspirin 325 mg PO NOW STA
Nitroglycerin Sublingual [Nitrostat (Sublingual)] 0.4 mg SL [id number] PRN
CR Chest Portable - 1 View Urgent
Comment:
Reason For Exam: cp
Reason Study Needs to be Portable: Patient Unstable
10/13/24 11:25
CARDIOLOGY CONSULT Urgent
Consulting Provider: Codey Andrews
Was physician already notified: Yes
10/13/24 12:12
Echo 2D MMode Color/Doppler Routine
Reason for Study: CP
10/13/24 12:43
Complete Blood Count/No Diff Urgent
Comment: Obtain baseline before beginning heparin infusion if not already collected
PTT Urgent
Comment: Obtain baseline before beginning heparin infusion if not already collected
Pharmacy Request to Place See Dose Instructions PO NOW STA
Discontinue all Active Warfarin orders?: Not Applicable
Heparin Protocol- PTT Orders As Directed
PTT per Heparin protocol: -Obtain CBC and baseline PTT - if not already collected.
-Obtain PTT 6 hours from start of infusion. Then, every 6 hours until 2 consecutive
PTT's are therapeutic. Then, PTT Daily.
-With each rate change, obtain PTT every 6 hours until 2 consecutive PTT's are
therapeutic. Then, PTT Daily.
Notify MD As Directed
Notify physician if: PTT is greater than or equal to 200.
10/13/24 12:45
Heparin 15730 Units/250 ml 25,000 units in 250 ml IV PER PROTOCOL
Weight to be used for heparin protocol in kilograms (kg):: 65
Protocol:: Cardiac Tx/Acute Coronary
PTT Goal Range to be used:: PTT 73 to 111 seconds
Order type:: Initial
INITIAL Infusion Dose (UNITS/KG/hr) & then follow protocol:: 12 units/kg/hr
Infusion Dose in UNITS/hr & then follow protocol (UNITS/hr):: 800
INFUSION RATE in mL/hr & then follow protocol (mL/hr):: 8
PTT less than or equal to 64 seconds:: Increase rate by 200 units/hr (+ 2 mL/hr)
PTT 64.1 to 72.9 seconds:: Increase rate by 100 units/hr (+ 1 mL/hr)
PTT 73 to 111 seconds:: Target Range. No change in rate.
PTT 111.1 to 130.9 seconds:: Decrease rate by 100 units/hr (- 1 mL/hr)
PTT 131 to 199.9 seconds:: HOLD for 1 hr. Then decrease rate by 200 units/hr (- 2 mL/hr)
PTT greater than or equal to 200 seconds:: HOLD for 2 hrs & Notify Provider. Then decrease by 200 units/hr (-
2 mL/hr)
Lab follow-up:: Each change, PTT q6h until 2 consecutive are therapeutic. Then PTT
daily.
10/13/24 13:00
Troponin I Urgent
Pharmacy Request to Place See Dose Instructions IV DIRECTED
10/15/24 06:00
Complete Blood Count/No Diff Q2D
Comment: Notify MD if platelet count is <130,000 or decreases by 50% from baseline
10/17/24 06:00
Complete Blood Count/No Diff Q2D
Comment: Notify MD if platelet count is <130,000 or decreases by 50% from baseline
10/19/24 06:00
Complete Blood Count/No Diff Q2D
Comment: Notify MD if platelet count is <130,000 or decreases by 50% from baseline
10/21/24 06:00
Complete Blood Count/No Diff Q2D
Comment: Notify MD if platelet count is <130,000 or decreases by 50% from baseline
10/23/24 06:00
Complete Blood Count/No Diff Q2D
Comment: Notify MD if platelet count is <130,000 or decreases by 50% from baseline
10/25/24 06:00
Complete Blood Count/No Diff Q2D
Comment: Notify MD if platelet count is <130,000 or decreases by 50% from baseline
10/27/24 06:00
Complete Blood Count/No Diff Q2D
Comment: Notify MD if platelet count is <130,000 or decreases by 50% from baseline
10/29/24 06:00
Complete Blood Count/No Diff Q2D
Comment: Notify MD if platelet count is <130,000 or decreases by 50% from baseline
Abnormal Lab Results
10/13/24
10:48
RBC 3.43 L 10^6/uL
(4.70-6.10)
Hgb 11.1 L g/dL
(13.0-18.0)
Hct 31.5 L %
(39.0-52.0)
MCH 32.4 H pg
(27.0-31.0)
Monocytes % 11.0 H %
(1.7-9.3)
Sodium 134 L mmol/L
(135-145)
Glucose 119 H mg/dl
(70-99)
Alkaline Phosphatase 31 L U/L
(38-126)
10/13/24 10:48
Vital Signs
Initial and Last Documented VS:
Initial Vital Signs
Temp Pulse Resp BP Pulse Ox
98.0 F 71 26 118/73 99
10/13/24 10:42 10/13/24 10:42 10/13/24 10:42 10/13/24 10:42 10/13/24 10:42
Last Documented Vital Signs
Temp Pulse Resp BP Pulse Ox
98.0 F 60 16 111/67 99
10/13/24 10:42 10/13/24 12:30 10/13/24 12:30 10/13/24 12:00 10/13/24 12:30
*Critical Care Note
Total Time (30-74mins, 75-104mins- exclusive of procedures): 32
Update Note
Update Note:
Update, troponin noted patient always chest pain-free, prefers not to have topical nitrates as gives him a headache similarly he has been on Imdur previously but stopped due to syncope have requested cardiology consultation
In the meantime we will repeat his troponin
Update reviewed with Dr. Wan will be admitted to hospitalist service, acute coronary syndrome plan likely cath this admission
ED Attending Note
-
Portions of this chart may have been created with voice recognition software.� Occasional wrong word or��sound alike� substitutions may have occurred due to the inherent limitations of voice recognition software.
Discharge Plan
Departure
Patient Disposition: Admit
Date of Disposition: 10/13/24
Time of Disposition: 13:09
Admit to: IVU
Presentation/result/management discussed w/ accepting MD/DO: Hospitalist
Patient with high blood pressure during this ER visit?: No
Condition: Fair
Discharge Problem:
ACS (acute coronary syndrome)
Prescriptions:
No Action
alprazolam 0.25 mg Tablet
0.125 mg PO BIDPRN PRN (Reason: vertigo or agitated sleep)
ascorbic acid (vitamin C) 500 mg Tablet
500 mg PO HS
nitroglycerin 0.4 mg Tablet, Sublingual
0.4 mg SUBLINGUAL Q5MX3 PRN (Reason: CHEST PAIN)
coenzyme Q10 [CoQ-10] 100 mg Capsule
100 mg PO DAILY
aspirin 81 mg Tablet,Delayed Release (Dr/Ec)
81 mg PO DAILY
Myosedate
1 tab PO HSPRN PRN (Reason: sleep and muscle relaxation)
Praluent Pen 75 mg/mL pen injector
75 mg SC Q2W
acetaminophen 650 mg Tablet Extended Release
1,300 mg PO [id number] PRN (Reason: mild pain)
amlodipine [Norvasc] 2.5 mg tablet
1.25 mg PO HS
gabapentin [Neurontin] 600 mg Tablet
600 - 700 mg PO HS
clopidogrel [Plavix] 75 mg Tablet
75 mg PO QPM
ezetimibe [Zetia] 10 mg Tablet
5 mg PO HS
omega 8-gyq-bma-fish oil [Fish Oil] 1,200 (144-216) mg Capsule
1 cap PO HS
Magnesium Maleate
360 mg PO QHS
zinc 15 mg Tablet
30 mg PO DAILY
Probiotic 50 Billion
1 tab PO DAILY
Vitalmin B Complex [place]
1 tab PO DAILY
Vitamin D W K1 2000 Iu
2 tab PO DAILY
Wobenzym N
2 tab PO DAILY
Homocysteine Formula 0.8-50-100 mg-mg-mcg Tablet
1 tab PO NOON
Curcumin Evail
400 mg PO DAILY
Referrals:
Wayne Galvan MD [Family Provider] -
Interventions
Interventions:
*Risk Screen - Suicide Last Done: 10/13/24 10:50
*General Assessment Last Done: 10/13/24 10:50
*Neglect/Abuse Screening Last Done: 10/13/24 10:52
*ED- Fall Risk Assessment Last Done: 10/13/24 10:50
*ED COVID-19 Vaccine History Last Done: 10/13/24 10:50
ED- Cardiac Assessment Last Done: 10/13/24 10:54
Discharge Date and Time
Print Language: [id number]
[2024-10-13 11:19] LABS: Troponin I < 0.012 ng/ml
[2024-10-13 11:28] LABS: APTT 27.4 Sec (23.4-35.0)
--- NOTE | 2024-10-13 11:51 | CON.CAR ---
Addendum entered and electronically signed by Debbie Wan MD 10/13/24 16:53:
I saw and examined the patient.
The Chlorine Cell Tender's note was reviewed and I agree with the note.
Comment: Mr. Lopez is a 74-year-old gentleman with past medical history of coronary artery disease status post initial inferior ST elevation OK with RCA PCI in July 2015, subsequently with 2 RCA PCI's proximal to prior RCA stent and circumflex
stenosis with negative IFR in October 2015, status post NSTEMI with PCI of the ostial and distal RCA with 2 drug-eluting stents in April 2022 with residual moderate first diagonal disease and mid to distal circumflex stenosis, all of which was IFR
negative and medically managed after cath in 2022, hyperlipidemia with history of statin intolerance, symptomatic bradycardia status post Medtronic dual-chamber pacemaker in September 2023, hypertension, degenerative disc disease, mild to moderate
aortic regurgitation by echo in July 2023, restless leg syndrome, former smoker, prior left radial artery pseudoaneurysm who presents today to the emergency room after having recurrent 3-4 episodes of substernal chest discomfort while at rest
concerning for unstable angina.
He has been taking Xanax as well as nitroglycerin with resolution of symptoms. Troponin x 2 have been negative. EKG with paced rhythm.
On exam patient is well-appearing, in no acute distress, regular rate, normal S1 and S2, no carotid bruits, no JVD, lungs are clear to auscultation bilaterally, abdomen is soft, nontender, nondistended with active bowel sounds, warm extremities
without significant edema
Recommendations:
1. Symptoms concerning for possible unstable angina given recurrent episodes of chest discomfort have occurred at rest with prior history of coronary artery disease. We will continue to trend troponins and EKGs.
2. We will initiate IV heparin drip due to concern for ACS with close monitoring on telemetry.
3. We will check a full echocardiogram to assess biventricular function and rule out any significant valvular abnormalities.
4. Aggressive management of cardiovascular risk factors.
5. Extensive discussion was had with patient and at bedside would likely plan to proceed with coronary angiogram tentatively scheduled for tomorrow. Patient and requested to speak to his outpatient looper fixer, Dr. Tc Steele, one of
my interventional partners given prior episodes with similar symptoms that were medically treated with last catheterization showing stable/moderate CAD. I expressed my concerns to him given he is having recurrent episodes of rest chest discomfort
however I will reach out and speak to Dr. Tc Steele and we will come up with a plan in terms of some sort of ischemic evaluation in the interim we will continue on optimizing medical therapy for underlying CAD..
Debbie Wan MD, [facility], [facility]
Original Note:
Consultation
Consultation Request
Date/Time Consultation Requested: 10/13/2024
Date/Time Consultation Performed: 10/13/2024
Requesting Provider: Dr. Cardenas
Performing Provider: Apryl Lujan PA-C for Dr. Wan
Reason for Consultation: Chest pain
Medical History
-
Chief Complaint: CP
History of Present Illness:
HPI: Mathieu is a 74 year old male with PMH of CAD w/ prior PCI of RCA in 2015 and 2021, HTN, HLD w/ statin intolerance, DDD, BPH, restless leg syndrome, anxiety, and former tobacco abuse. Presented to [facility] for evaluation of recurrent chest pain.
He called the cardiology office earlier this week on 10/12/2023 and noted intermittent chest pain over the weekend for which he took xanex and nitro w/ resolution of pain. He was pain free at the time of call and remained pain free until this AM. He
had been arranged for appointment in cardiology office this afternoon, however this AM awoke with central chest pain. He checked his BP and it was somewhat elevated, so w/ chest pain concerning for angina, he took a nitro and within 10 minutes pain
resolved. He then ate breakfast (cereal, yogurt, and fruit) around 9:30 and about 30 minutes later, chest pain returned. He took 2 additional nitro and this improved pain, but did not resolve. He also noted lightheadedness and weakness with this, so
EMS was called. On arrival to ER, vitals were stable and ECG was without any acute ischemic changes. Initial troponin negative. Given concern for ACS, cardiology consulted. He notes currently he has only minimal discomfort of his chest, 1-07/12 in
severity. No SOB or dizziness. No other symptoms noted. He had been doing well without symptoms of chest pain since starting metoprolol this fall. Has been active, participating in PT without exertional symptoms, however the past few days has not
felt himself.
PMH:
CAD
s/p STEMI with RCA PCI 07/2015
s/p RCA PCI x2 prox to prior RCA stent and circ stenosis with negative FFR 10/2015
s/p NSTEMI with PCI ostial and distal RCA x2 GUERDA 04/03/22
residual mod first diag, mid and distal circ stenosis, iFR negative, medically managed by cath 06/2022
HLD
h/o statin intolerance
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
HTN
DDD s/p lumbar lami 2018
BPH
Mild-mod MR by echo 07/2023
Former smoker
PVCs
Restless leg syndrome
h/o L radial artery pseudoaneurysm
h/o vertigo
Anxiety
Past Medical History
Past Medical History: Other (in HPI)
Social History
Tobacco: Former Smoker
Alcohol: Occasional
Personal:
Living: With Family
Employment: Retired
Family History
Family History: CAD and Other (CVA)
Allergies / Home Medications
Allergy/AdvReac Type Severity Reaction Status Date / Time
clonidine Allergy Unknown Rash Verified 02/16/24 04:05
lisinopril Allergy Nausea / Verified 02/16/24 04:05
Vomiting
�Medication �Instructions �Recorded �Confirmed �Type
alprazolam 0.25 mg tablet 0.125 mg PO BIDPRN PRN vertigo or 04/03/22 09/17/23 History
agitated sleep
ascorbic acid (vitamin C) 500 mg 500 mg PO HS Supplement 04/03/22 09/17/23 History
tablet
coenzyme Q10 100 mg capsule 100 mg PO DAILY Supplement 04/03/22 09/17/23 History
(CoQ-10)
nitroglycerin 0.4 mg sublingual 0.4 mg sublingual [id number] PRN CHEST 04/03/22 09/17/23 History
tablet PAIN
Myosedate 1 tab PO HSPRN PRN sleep and 06/24/22 09/17/23 History
muscle relaxation
aspirin 81 mg tablet,delayed 81 mg PO DAILY Blood clot 06/24/22 09/17/23 History
release prevention/tx
alirocumab 75 mg/mL subcutaneous 75 mg SC Q2W Autoimmune disorder 06/25/22 09/17/23 History
pen injector (Praluent Pen)
acetaminophen 650 mg 1,300 mg PO [id number] PRN mild pain 06/11/23 09/17/23 History
tablet,extended release
amlodipine 2.5 mg tablet (Norvasc) 1.25 mg PO HS 06/11/23 09/17/23 History
Curcumin Evail 400 mg PO DAILY 09/17/23 09/17/23 History
Magnesium Maleate 360 mg PO QHS 09/17/23 09/17/23 History
Probiotic 50 Billion 1 tab PO DAILY 09/17/23 09/17/23 History
Vitalmin B Complex [place] 1 tab PO DAILY 09/17/23 09/17/23 History
Vitamin D W K1 2000 Iu 2 tab PO DAILY 09/17/23 09/17/23 History
Wobenzym N 2 tab PO DAILY 09/17/23 09/17/23 History
clopidogrel 75 mg tablet (Plavix) 75 mg PO QPM 09/17/23 09/17/23 History
ezetimibe 10 mg tablet (Zetia) 5 mg PO HS 09/17/23 09/17/23 History
folic acid-vit B6-vit B12 0.8 1 tab PO NOON 09/17/23 09/17/23 History
mg-50 mg-100 mcg tablet
(Homocysteine Formula)
gabapentin 600 mg tablet 600 - 700 mg PO HS 09/17/23 09/17/23 History
(Neurontin)
omega 7-jtm-ohs-fish oil 1,200 mg 1 cap PO HS 09/17/23 09/17/23 History
(144 mg-216 mg) capsule (Fish Oil)
zinc 15 mg tablet 30 mg PO DAILY 09/17/23 09/17/23 History
Review of Systems
-
History Source: Patient
All other systems: Negative unless noted
Physical Exam
Vital Signs
Temp Pulse Resp BP Pulse Ox
98.0 F 61 20 117/72 99
10/13/24 10:42 10/13/24 10:54 10/13/24 10:54 10/13/24 11:01 10/13/24 10:54
Lab Results
10/13/24 10:48
10/13/24 10:48
Troponin I < 0.012 ng/ml 10/13/24 10:48
Physical Exam
General: Well Developed, Well Nourished and No Apparent Distress
HEENT: Normocephalic, Anicteric and Moist Mucous Membranes
Respiratory: Clear and Non Labored Respirations
Cardiac: S1/S2, Regular Rhythm and Murmur
Musculoskeletal: No Clubbing, No Cyanosis and No Edema
Skin: Warm and Dry
Neuro: AO x 3 and Nonfocal/Grossly Intact
Psych: Calm
Impression / Plan
-
PCP: Dr. Galvan
Creative Manager: Dr. Steele
Impression:
Presented with chest pain
CAD
s/p STEMI with RCA PCI 07/2015
s/p RCA PCI x2 prox to prior RCA stent and circ stenosis with negative FFR 10/2015
s/p NSTEMI with PCI ostial and distal RCA x2 GUERDA 04/03/22
residual mod first diag, mid and distal circ stenosis, iFR negative, medically managed by cath 06/2022
HLD
h/o statin intolerance
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
HTN
DDD s/p lumbar lami 2018
BPH
Mild-mod MR by echo 07/2023
Former smoker
PVCs
Restless leg syndrome
h/o L radial artery pseudoaneurysm
h/o vertigo
Anxiety
Lexiscan nuclear stress test 03/11/2024: Perfusion imaging suggestive of dense inferior infarct without evidence of ischemia.
Echo 04/2022: EF 55 to 60%, mild concentric LVH, mild to moderate MR, mild with peak/mean gradients 21/11 mmHg, ESTRELLITA 1.6 cm�, mild AR, mild TR
Echo 06/26/2022: EF 55 to 60%, no regional wall motion abnormality seen, moderate MR, mild with peak/mean gradients 26/13 mmHg, ESTRELLITA 1.6 cm�, mild AR
Echo 07/14/2023: EF 55-60%, mild with peak/mean gradients 20/10 mmHg, mild to mod AR, mild to mod MR, mild TR
Echo 10/13/2024: Study pending
Plan:
-Presented with recurrent chest pain. Known h/o CAD w/ multiple prior stents in RCA. Most recent cardiac catheterization from 2022 w/ stable moderate disease as above, managed medically.
-Pain improved/resolved w/ SL nitro. Continue to follow
-Initial troponin negative, continue to trend
-Start heparin w/ concern for possible ACS
-Chest xray without acute disease.
-Check echo
-Continue aspirin 81mg daily, s/p 324 mg this AM due to CP. Also on plavix 75mg daily as OP.
-BP stable, continue Toprol 12.5mg daily
-Known h/o statin intolerance. LDL 68 07/2024. Continue Praluent and Zetia
-Follow troponin trend and echo results. Will eventually need ischemic evaluation, timing TBD.
HPI: Mathieu is a 74 year old male with PMH of CAD w/ prior PCI of RCA in 2015 and 2021, HTN, HLD w/ statin intolerance, DDD, BPH, restless leg syndrome, anxiety, and former tobacco abuse. Presented to [facility] for evaluation of recurrent chest pain.
He called the cardiology office earlier this week on 10/12/2023 and noted intermittent chest pain over the weekend for which he took xanex and nitro w/ resolution of pain. He was pain free at the time of call and remained pain free until this AM. He
had been arranged for appointment in cardiology office this afternoon, however this AM awoke with central chest pain. He checked his BP and it was somewhat elevated, so w/ chest pain concerning for angina, he took a nitro and within 10 minutes pain
resolved. He then ate breakfast (cereal, yogurt, and fruit) around 9:30 and about 30 minutes later, chest pain returned. He took 2 additional nitro and this improved pain, but did not resolve. He also noted lightheadedness and weakness with this, so
EMS was called. On arrival to ER, vitals were stable and ECG was without any acute ischemic changes. Initial troponin negative. Given concern for ACS, cardiology consulted. He notes currently he has only minimal discomfort of his chest, 1-2/10 in
severity. No SOB or dizziness. No other symptoms noted. He had been doing well without symptoms of chest pain since starting metoprolol this fall. Has been active, participating in PT without exertional symptoms, however the past few days has not
felt himself.
Data Reviewed
-
EKG: Tracing Personally Visualized and interpreted
Radiology: Report Reviewed by me
Labs: Labs Reviewed by me
Old Records: Reviewed
[2024-10-13 12:00] VITALS: BP 111/67
[2024-10-13 13:00] VITALS: BP 136/71
[2024-10-13 13:01] VITALS: BP 136/71
[2024-10-13 13:19] LABS: Hematocrit 33.2 % (39.0-52.0); Hemoglobin 11.7 g/dL (13.0-18.0); Mean Corp Hgb Conc. 35.2 g/dL (33.0-37.0); Mean Corpuscular Hgb 32.6 pg (27.0-31.0); Mean Corpuscular Volume 92.5 fL (80.0-94.0); Mean Platelet Volume 9.2 fL (7.4-10.4); Platelet Count 272 10^3/uL (130-400); Red Blood Cell Count 3.59 10^6/uL (4.70-6.10); Red Cell Dist. Width 11.6 % (11.5-14.5); White Blood Cell Count 5.1 10^3/uL (4.8-10.8)
--- NOTE | 2024-10-13 13:24 | HPS.HSE ---
Family Physician
-
Family Physician: Wayne Galvan
Chief Complaint
-
recurrent CP
History of Present Illness
HPI
74M HX CAD w/ prior PCI of RCA in 2015 and 2021, HTN, HLD w/ statin intolerance, DDD, BPH, restless leg syndrome, anxiety, and former tobacco abuse for evaluation of recurrent chest pain.
- noted intermittent chest pain over the weekend for which he took xanex and nitro w/ resolution of pain.
- pain free at the time of call and remained pain free until this AM.
- this AM awoke with central chest pain
- BP was somewhat elevated, so w/ chest pain concerning for angina, he took a nitro and within 10 minutes pain resolved.
- chest pain returned. He took 2 additional nitro and this improved pain, but did not resolve.
- lightheadedness and weakness with this, so EMS was called.
- currently he has only minimal discomfort of his chest, 1-2/10 in severity.
At ER
ECG : No acute ischemic changes.
Neg initial TPNI
Medical History
Past Medical History
Past Medical History: Reports CAD, HTN, Hypercholesterolemia and IA
Past Surgical History: Reports Cardiac (cardiac cath with stent)
Social History
Tobacco: Former Smoker (quit 50 years ago)
Alcohol: Occasional
Drug: None
Personal:
Living: With Family
Employment: Retired
Family History
Family History: CAD and Hypertension
Allergies / Home Medications
Allergies reflects when Allergies were last updated in [employer].
Home Medications with original date entered in [employer]
Allergy/Medication List:
Lisinopril
Allergies
Allergy/AdvReac Type Severity Reaction Status Date / Time
clonidine Allergy Unknown Rash Verified 10/13/24 13:19
lisinopril Allergy Nausea / Verified 10/13/24 13:19
Vomiting
Home Medications
alprazolam 0.25 mg tablet 0.125 mg PO BIDPRN PRN vertigo or agitated sleep 04/03/22
ascorbic acid (vitamin C) 500 mg tablet 500 mg PO BID Supplement 04/03/22
coenzyme Q10 100 mg capsule (CoQ-10) 100 mg PO DAILY Supplement 04/03/22
nitroglycerin 0.4 mg sublingual tablet 0.4 mg sublingual [id number] PRN CHEST PAIN 04/03/22
Myosedate 1 tab PO HSPRN PRN sleep and muscle relaxation 06/24/22
aspirin 81 mg tablet,delayed release 81 mg PO DAILY Blood clot prevention/tx 06/24/22
alirocumab 75 mg/mL subcutaneous pen injector (Praluent Pen) 75 mg SC Q2W Autoimmune disorder 06/25/22
acetaminophen 650 mg tablet,extended release 1,300 mg PO [id number] PRN mild pain 06/11/23
Curcumin Evail 400 mg PO DAILY 09/17/23
Lactobac no.2-Bifidobac no.1-S. thermo 112.5 billion cell capsule (Visbiome) 1 cap PO DAILY ##0 09/17/23
Magnesium Maleate 360 mg PO BID 09/17/23
Wobenzym N 2 tab PO DAILY 09/17/23
clopidogrel 75 mg tablet (Plavix) 75 mg PO QPM 09/17/23
ezetimibe 10 mg tablet (Zetia) 5 mg PO HS 09/17/23
folic acid-vit B6-vit B12 0.8 mg-50 mg-100 mcg tablet (Homocysteine Formula) 1 tab PO NOON 09/17/23
gabapentin 600 mg tablet (Neurontin) 600 mg PO HS 09/17/23
omega 2-dri-ppt-fish oil 1,200 mg (144 mg-216 mg) capsule (Fish Oil) 1 cap PO HS 09/17/23
vit D3 50 mcg-vitamin K1 500 mcg-MK4 1,500 mcg-MK7 180 mcg capsule 1 cap PO DAILY ##0 09/17/23
vitamin B complex 1 tab PO DAILY ##0 09/17/23
zinc 15 mg tablet 30 mg PO DAILY 09/17/23
metoprolol succinate 25 mg tablet,extended release 24 hr (Toprol XL) 12.5 mg PO HS 10/13/24
Review of Systems
-
Constitutional: Reports No Symptoms
EENT: Reports No Symptoms
Respiratory: Reports No Symptoms
Cardiac: Reports See HPI
Abdomen/GI: Reports No Symptoms
: Reports No Symptoms
Musculoskeletal: Reports No Symptoms
Skin: Reports No Symptoms
Neurological: Reports No Symptoms
Endocrine: Reports No Symptoms
Hematologic/Lymphatic: Reports No Symptoms
Psych: Reports No Symptoms
Physical Exam
Vital Signs
Vital Signs
Temp Pulse Resp BP Pulse Ox
97.8 F 60 23 136/71 100
10/13/24 13:00 10/13/24 13:01 10/13/24 13:01 10/13/24 13:01 10/13/24 13:01
Physical Exam
General: Well Developed, Well Nourished and No Apparent Distress
HEENT: NormoCephalic, Moist mucous membranes and Atraumatic
Respiratory: Clear
Cardiac: S1/S2 and Regular Rhythm; No Murmur or Rub
GI: Soft, Non Tender, Non Distended and Normal Bowel Sounds; No Organomegaly
Rectal: Deferred by Provider
Musculoskeletal: No Clubbing, No Cyanosis and No Edema
Skin: No Rash
Neuro: Nonfocal/grossly intact
Laboratory Results
-
10/13/24 13:06
10/13/24 10:48
Laboratory Results
APTT 27.4 Sec (23.4-35.0) 10/13/24 10:48
Total Bilirubin 0.4 mg/dl (0.2-1.3) 10/13/24 10:48
AST 28 U/L (17-59) 10/13/24 10:48
ALT 20 U/L (0-50) 10/13/24 10:48
Alkaline Phosphatase 31 U/L (38-126) L 10/13/24 10:48
Troponin I < 0.012 ng/ml 10/13/24 10:48
Data Reviewed
-
Medical Tests (Nuc Med, Echo, EKG etc): Report Reviewed by me
Lab Data: Labs Reviewed by me
Old Records: Reviewed
Impression/Plan
-
Vital Signs
Temp Pulse Resp BP Pulse Ox
97.8 F 60 23 136/71 100
10/13/24 13:00 10/13/24 13:01 10/13/24 13:01 10/13/24 13:01 10/13/24 13:01
Abnormal Lab Results
10/13/24 10/13/24
10:48 13:06
RBC 3.43 L 3.59 L
Hgb 11.1 L 11.7 L
Hct 31.5 L 33.2 L
MCH 32.4 H 32.6 H
Monocytes % 11.0 H
Sodium 134 L
Glucose 119 H
Alkaline Phosphatase 31 L
EKG
AV dual-paced rhythm
ABNORMAL ECG
WHEN COMPARED WITH ECG OF 16-FEB-2024 07:44,
NO SIGNIFICANT CHANGE WAS FOUND
Confirmed by CHEMA CLEMENS MD ([id number]) on 10/13/2024 12:09:30 PM
07/14/23 TTE
Normal left ventricular size, wall thickness systolic function
Left ventricular ejection fraction by Osullivan's biplane method 55-60% Normal diastolic function
Normal RV size and systolic function
Thickened mitral valve leaflets with mild to moderate mitral regurgitation
Mild aortic stenosis. Peak/mean transaortic gradients 20/10 mmHg.
Mild to moderate aortic regurgitation
Mild tricuspid agitation
Moderate pulmonic regurgitation
The aortic root is of normal size: 2.4 cm sinus of Valsalva, 2.4 cm sinotubular
junction. Proximal ascending aorta 3.3 cm.
Compared to prior study dated 06/26/2022, mitral regurgitation previously
reported moderate. Aortic valve remains mildly stenotic, previous gradients
26/13 mmHg. Aortic regurgitation slightly worse, previously mild. Pulmonic regurgitation has worsened
NO prior hospitalist admission:
ASSESSMENT & PLAN
Recurrent chest pain - likely ACS
- Known HX CAD w/ multiple prior stents in RCA.
- Most recent cardiac catheterization from 2022 w/ stable moderate disease as above, managed medically.
- DCA card consulted - reviewed note
- Currently CP free upon my evalaution
- Pain improved/resolved w/ SL nitro
- NEG initial troponin
- ASA 325 mg loading then baby ASA daily
- cont. TIG WELDER Plavix
- on Heparin gtt
- TTE
- Follow troponin trend and echo results.
- DCA Card consulted - suggest eventual ischemic evaluation
HLD with LDL 68 07/2024.
- Known HX statin intolerance
- c/w TIG WELDER Praluent and Zetia
Pre existing condition
CAD
s/p STEMI with RCA PCI 07/2015
s/p RCA PCI x2 prox to prior RCA stent and circ stenosis with negative FFR 10/2015
s/p NSTEMI with PCI ostial and distal RCA x2 GUERDA 04/03/22
residual mod first diag, mid and distal circ stenosis, iFR negative, medically managed by cath 06/2022
HLD
HX statin intolerance
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
HTN
DDD s/p lumbar lami 2018
BPH
Mild-mod MR by echo 07/2023
Former smoker
PVCs
Restless leg syndrome
h/o L radial artery pseudoaneurysm
h/o vertigo
Anxiety
DVT Px: on Heparin gtt
Code: Full code
IVU
[2024-10-13 13:27] LABS: APTT 26.6 Sec (23.4-35.0)
[2024-10-13 13:44] LABS: Troponin I < 0.012 ng/ml
[2024-10-13] MEDS: HEPARIN 25000 UNITS/250 ML IV (14:30)
[2024-10-13] MEDS: PLAVIX 75 MG PO (18:35)
[2024-10-13 19:03] LABS: Troponin I < 0.012 ng/ml
[2024-10-13 21:10] LABS: APTT 46.5 Sec (23.4-35.0)
[2024-10-13 21:16] LABS: Troponin I < 0.012 ng/ml
[2024-10-13 22:50] VITALS: BP 154/73
--- NOTE | 2024-10-13 22:50 | PTCARENOTE ---
Pt admitted to room 2247 from ED via stretcher, ambulated from stretcher to bed with no issues, denies chest pain, dizziness or SOB. AV paced on the monitor with HR 70's. O2 sat 100% RA. Hep gtt infusing at 1000unit/hr. VS stable. Pt oriented to
call light and surroundings. POC ongoing.
[2024-10-13 22:58] VITALS: BMI 22.9
[2024-10-13] MEDS: ZETIA 5 MG PO (23:13)
[2024-10-13] MEDS: XANAX 0.125 MG PO (23:13)
[2024-10-13] MEDS: NEURONTIN 600 MG PO (23:14)
[2024-10-14] VITALS (9 sets, daily range): BP systolic 107–163; BP diastolic 53–83; BMI 22.8
[2024-10-14 00:05] LABS: Troponin I < 0.012 ng/ml
[2024-10-14 03:34] LABS: Hematocrit 31.5 % (39.0-52.0); Hemoglobin 11.2 g/dL (13.0-18.0); Mean Corp Hgb Conc. 35.6 g/dL (33.0-37.0); Mean Corpuscular Hgb 32.7 pg (27.0-31.0); Mean Corpuscular Volume 91.8 fL (80.0-94.0); Mean Platelet Volume 8.8 fL (7.4-10.4); Platelet Count 241 10^3/uL (130-400); Red Blood Cell Count 3.43 10^6/uL (4.70-6.10); Red Cell Dist. Width 11.6 % (11.5-14.5); White Blood Cell Count 6.1 10^3/uL (4.8-10.8)
[2024-10-14 03:59] LABS: ALT (SGPT) 19 U/L (0-50); AST (SGOT) 24 U/L (17-59); Albumin 3.8 g/dl (3.5-5.0); Alkaline Phosphatase 40 U/L (38-126); Blood Urea Nitrogen 18 mg/dl (9-20); Calcium 9.2 mg/dl (8.4-10.2); Carbon Dioxide 24 mmol/L (22-30); Chloride 106 mmol/L (98-107); Estimated Creatinine Clearance 66 ml/min; Glucose 144 mg/dl (70-99); HDL Cholesterol 63 mg/dl; LDL Cholesterol, Calculated 45 mg/dl; Potassium 3.9 mmol/L (3.5-5.1); Sodium 136 mmol/L (135-145); Total Bilirubin 0.2 mg/dl (0.2-1.3); Total Cholesterol 132 mg/dl (50-199); Triglyceride 123 mg/dl (10-149); Very Low Density Lipoprotein 24 mg/dl (0-30); eGFR > 60.00
[2024-10-14] MEDS: ASPIR LOW (ENTERIC COATED) 81 MG PO (08:14)
--- NOTE | 2024-10-14 09:12 | W.PN.HOSP.TC ---
Addendum entered and electronically signed by Star Larson MD 10/15/24 13:11:
Addendum
I received [place] text around 7 PM on 10/14, patient was telling the nurse that he could go home by her supervisor building maintenance. No direct communications were made by supervisor building maintenance to clear the patient for discharge. Adam [address] Dr. Did not receive any updates
from supervisor building maintenance also.
Original Note:
Today's Communication/Plan
-
NPO
IV Heparin gtt
Assessment / Plan
Assessment / Plan
Physical Exam
General: Well Developed, Well Nourished and No Apparent Distress
HEENT: NormoCephalic, Moist mucous membranes and Atraumatic
Respiratory: Clear
Cardiac: S1/S2 and Regular Rhythm; No Murmur or Rub
GI: Soft, Non Tender, Non Distended and Normal Bowel Sounds; No Organomegaly
Rectal: Deferred by Provider
Musculoskeletal: No Clubbing, No Cyanosis and No Edema
Skin: No Rash
Neuro: Nonfocal/grossly intact
# Recurrent chest pain - unlikely ACS
- Known HX CAD w/ multiple prior stents in RCA.
- Most recent cardiac catheterization from 2022 w/ stable moderate disease as above, managed medically.
- Negative serial troponin
- No chest pain over night
Plan to f/w cardiology to do stress test, keep NPO
Appreciate cardiology input
# Hyponatremia
mild
HLD with LDL 68 07/2024.
- Known HX statin intolerance
- c/w BRUSH TRIMMING MACHINE SETTER Praluent and Zetia
Pre existing condition
CAD
s/p STEMI with RCA PCI 07/2015
s/p RCA PCI x2 prox to prior RCA stent and circ stenosis with negative FFR 10/2015
s/p NSTEMI with PCI ostial and distal RCA x2 GUERDA 04/03/22
residual mod first diag, mid and distal circ stenosis, iFR negative, medically managed by cath 06/2022
HLD
HX statin intolerance
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
HTN
DDD s/p lumbar lami 2018
BPH
Mild-mod MR by echo 07/2023
Former smoker
PVCs
Restless leg syndrome
h/o L radial artery pseudoaneurysm
h/o vertigo
Anxiety
DVT Px: on Heparin gtt
Code: Full code
IVU
Total time spent to see the patient, examine the patient, review data and lab results, discuss treatment plan with patient, nursing staff around 55 minutes
Anticipated Discharge: Within 24 hours
Subjective/Interval History
-
Date of Service: October 14, 2024
No chest pain
Slept well
Objective Data
-
Labs:
Laboratory Results
10/14/24 10/14/24
03:16 09:30
WBC 6.1
Hgb 11.2 L
Hct 31.5 L
Plt Count 241
APTT 78.0 H Pending
Sodium 136
Potassium 3.9
Chloride 106
Carbon Dioxide 24
BUN 18
Creatinine 0.9
Glucose 144 H
Calcium 9.2
Total Bilirubin 0.2
AST 24
ALT 19
Alkaline Phosphatase 40
Vital Signs:
Vital Signs
Temp Pulse Resp BP Pulse Ox
98.2 F 60 20 130/73 98
10/14/24 07:21 10/14/24 07:30 10/14/24 07:21 10/14/24 07:21 10/14/24 07:21
[2024-10-14 09:34] LABS: Glycohemoglobin (HgbA1c) 5.2 % (4.0-5.6)
--- NOTE | 2024-10-14 09:39 | W.PN.CARDCBS ---
Addendum entered and electronically signed by Debbie Wan MD 10/14/24 13:20:
I saw and examined the patient.
The Property Developer's note was reviewed and I agree with the note.
Comment: Overnight patient did well and has not had any recurrent chest discomfort. Troponin x 3 are negative.
On exam patient is well-appearing, in no acute distress, awake, alert and oriented x 3, normal carotid upstrokes, no carotid bruit, no JVD, lungs are clear to auscultation bilaterally, regular rate, normal S1 and S2, no murmurs, rubs or gallops,
abdomen is soft, nontender, nondistended with active bowel sounds, warm extremities without significant edema.
Recommendations:
1. I had a lengthy discussion with Mathieu. I told him that I also spoke with his outpatient release of information clerk, Dr. Tc Steele regarding his presentation and the fact that his troponins had stayed negative. Given significant component of underlying
anxiety, we discussed at least pursuing some form of ischemic workup given patient has been extremely hesitant about undergoing any invasive procedures such as a coronary angiogram once the risk and benefits were reviewed. We discussed potentially
pursuing a pharmacologic nuclear stress test as an alternative to a coronary angiogram, discussing limitations of noninvasive testing including potentially missing an obstructive lesion given some degree of false negativity associated with
noninvasive testing. After reviewing the risk and benefits of each procedure as a neck step including a pharmacologic nuclear stress test versus invasive coronary angiogram, in a shared decision-making fashion with patient not having any recurrent
symptoms with negative troponins, our plan is to pursue a pharmacologic nuclear stress test for now. We did discuss that in case there are abnormalities noted on the stress test, we would then pursue a coronary angiogram.
2. We will stop heparin drip. We are still awaiting an echocardiogram to reassess biventricular function and rule out any significant valvular abnormalities.
3. Continue optimization of medical therapy for underlying coronary artery disease. We will plan to increase Toprol-XL to 25 mg daily. He will continue aspirin and Plavix for now.
4. Further recommendations based on findings of pharmacologic nuclear stress test.
Discussed with hospitalist team as well as nursing at bedside.
Debbie Wan MD, [facility], [facility]
Total time spent: 52mins
Original Note:
Today's Communication / Plan
-
echo and Lexiscan stress test today
Impression / Plan
-
PCP: Dr. Galvan
Medical Physicist: Dr. Steele
Impression:
Presented with chest pain
CAD
s/p STEMI with RCA PCI 07/2015
s/p RCA PCI x2 prox to prior RCA stent and circ stenosis with negative FFR 10/2015
s/p NSTEMI with PCI ostial and distal RCA x2 GUERDA 04/03/22
residual mod first diag, mid and distal circ stenosis, iFR negative, medically managed by cath 06/2022
HLD
h/o statin intolerance
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
HTN
DDD s/p lumbar lami 2018
BPH
Mild-mod MR by echo 07/2023
Former smoker
PVCs
Restless leg syndrome
h/o L radial artery pseudoaneurysm
h/o vertigo
Anxiety
Lexiscan nuclear stress test 03/11/2024: Perfusion imaging suggestive of dense inferior infarct without evidence of ischemia.
Echo 04/2022: EF 55 to 60%, mild concentric LVH, mild to moderate MR, mild with peak/mean gradients 21/11 mmHg, ESTRELLITA 1.6 cm�, mild AR, mild TR
Echo 06/26/2022: EF 55 to 60%, no regional wall motion abnormality seen, moderate MR, mild with peak/mean gradients 26/13 mmHg, ESTRELLITA 1.6 cm�, mild AR
Echo 07/14/2023: EF 55-60%, mild with peak/mean gradients 20/10 mmHg, mild to mod AR, mild to mod MR, mild TR
Echo 10/14/2024: Study pending
Lexiscan MIBI 10/14/2024: pending
Plan:
-Presented with recurrent chest pain. Known h/o CAD w/ multiple prior stents in RCA. Most recent cardiac catheterization from 2022 w/ stable moderate disease as above, managed medically.
-Pain improved/resolved w/ SL nitro. No recurrent pain overnight.
-Troponin trended undetectable <0.012
-on heparin w/ concern for possible ACS
-Chest xray without acute disease.
-given negative troponin and improvement in chest pain will proceed with nuclear stress test today for ischemic evaluation.
-Check echo today.
-Continue aspirin 81mg daily, Also on plavix 75mg daily as OP.
-BP stable, continue Toprol 12.5mg daily
-Known h/o statin intolerance. LDL 68 07/2024. Continue Praluent and Zetia
-
HPI: Mathieu is a 74 year old male with PMH of CAD w/ prior PCI of RCA in 2015 and 2021, HTN, HLD w/ statin intolerance, DDD, BPH, restless leg syndrome, anxiety, and former tobacco abuse. Presented to [facility] for evaluation of recurrent chest pain.
He called the cardiology office earlier this week on 10/12/2023 and noted intermittent chest pain over the weekend for which he took xanex and nitro w/ resolution of pain. He was pain free at the time of call and remained pain free until this AM. He
had been arranged for appointment in cardiology office this afternoon, however this AM awoke with central chest pain. He checked his BP and it was somewhat elevated, so w/ chest pain concerning for angina, he took a nitro and within 10 minutes pain
resolved. He then ate breakfast (cereal, yogurt, and fruit) around 9:30 and about 30 minutes later, chest pain returned. He took 2 additional nitro and this improved pain, but did not resolve. He also noted lightheadedness and weakness with this, so
EMS was called. On arrival to ER, vitals were stable and ECG was without any acute ischemic changes. Initial troponin negative. Given concern for ACS, cardiology consulted. He notes currently he has only minimal discomfort of his chest, 1-2/10 in
severity. No SOB or dizziness. No other symptoms noted. He had been doing well without symptoms of chest pain since starting metoprolol this fall. Has been active, participating in PT without exertional symptoms, however the past few days has not
felt himself.
Progress Note - Medical Physicist
Subjective
Date of Service: October 14, 2024
no recurrent chest pain
Objective
Labs:
10/14/24 03:16
10/14/24 03:16
Labs
Hgb 11.2 g/dL (13.0-18.0) L 10/14/24 03:16
Hct 31.5 % (39.0-52.0) L 10/14/24 03:16
Plt Count 241 10^3/uL (130-400) 10/14/24 03:16
APTT 78.0 Sec (23.4-35.0) H 10/14/24 03:16
Sodium 136 mmol/L (135-145) 10/14/24 03:16
Potassium 3.9 mmol/L (3.5-5.1) 10/14/24 03:16
BUN 18 mg/dl (9-20) 10/14/24 03:16
Creatinine 0.9 mg/dL (0.7-1.3) 10/14/24 03:16
Glucose 144 mg/dl (70-99) H 10/14/24 03:16
Troponins
10/13/24 10/13/24 10/13/24
10:48 13:06 18:29
Troponin I < 0.012 < 0.012 < 0.012
10/13/24 10/13/24
20:43 23:26
Troponin I < 0.012 < 0.012
Vital Signs and I&O:
Vital Signs
Temp Pulse Resp BP Pulse Ox
98.2 F 60 20 130/73 98
10/14/24 07:21 10/14/24 07:30 10/14/24 07:21 10/14/24 07:21 10/14/24 07:21
Vital Signs
Temp Pulse Resp BP Pulse Ox
98.2 F 60 20 130/73 98
10/14/24 07:21 10/14/24 07:30 10/14/24 07:21 10/14/24 07:21 10/14/24 07:21
Physical Exam
Physical Exam
GEN: No distress, awake, Ox3
HEENT: supple, anicteric, mmm
LUNGS: CTA, no wheezes/rales
CV: Reg, S1/S2, no murmur
ABD: soft, BS+, NT/ND
EXT: No edema
NEURO: Gross non-focal
SKIN: No rash
--- NOTE | 2024-10-14 12:00 | CM ---
CM following for DC planning needs.
Met w/ patient + spouse at bedside to complete initial assessment.
Pt. reports that he resides in a private, 2 STH with spouse. Functionally, patient is quite indep. at baseline w/ ADLs, mobility without the use of any assisted device.
Pt. has RX plan and uses [facility] in [place] for prescription needs.
Antic. DC plan is for home, no needs.
Will cont. to follow.
[2024-10-14] MEDS: FLUSH (NSS) 1 FLUSH IV (12:17)
[2024-10-14] MEDS: LEXISCAN 0.4 MG IV (12:17)
[2024-10-14] MEDS: AMINOPHYLLINE 75 MG IV (12:38)
--- NOTE | 2024-10-14 14:57 | PTCARENOTE ---
Received pt pot stress test. Discussed possible cath. VSS. Heparin drip discontinued per MD order. Will monitor.
[2024-10-14] MEDS: PLAVIX 75 MG PO (16:36)
--- NOTE | 2024-10-14 17:03 | W.PN.UPDATE ---
Update Note
Progress Note Update
Interventional cardiology update note
Echocardiogram was reviewed by myself which showed preserved LV systolic function without regional wall motion abnormalities with stable valve disease compared to prior echocardiogram.
Lexiscan nuclear stress test showed fixed defect in the inferior and inferoseptal coronel likely suggestive of scar from prior IA with no new reversible defects.
In the setting with no recurrent chest discomfort with negative troponins extensive discussion was had with the patient and his at bedside, with plan to discharge home on slightly higher dose of Toprol-XL which he will take 12.5 mg twice daily
Patient and were educated in regards to keeping an eye out for any recurrent symptoms and having a low threshold to call us or come back for additional workup in case there are any concerns for ACS. We will work on setting up outpatient
cardiology follow-up.
We will also make sure he has sublingual nitroglycerin as needed.
Debbie Wan MD, FACC, [facility].
[2024-10-14] MEDS: TOPROL XL 12.5 MG PO (17:12)
[2024-10-14] MEDS: NEURONTIN 600 MG PO (21:12)
[2024-10-14] MEDS: ZETIA 5 MG PO (21:12)
[2024-10-15] MEDS: XANAX 0.125 MG PO (00:13)
[2024-10-15 04:26] VITALS: BP 129/73
[2024-10-15 04:44] VITALS: BMI 22.9
[2024-10-15 05:20] LABS: Hematocrit 31.1 % (39.0-52.0); Hemoglobin 11.1 g/dL (13.0-18.0); Mean Corp Hgb Conc. 35.7 g/dL (33.0-37.0); Mean Corpuscular Hgb 32.8 pg (27.0-31.0); Mean Platelet Volume 8.9 fL (7.4-10.4); Platelet Count 230 10^3/uL (130-400); Red Blood Cell Count 3.38 10^6/uL (4.70-6.10); Red Cell Dist. Width 11.8 % (11.5-14.5); White Blood Cell Count 5.2 10^3/uL (4.8-10.8)
--- NOTE | 2024-10-15 07:25 | PTCARENOTE ---
Pt had an uneventful night, denied pain or discomfort. AV paced on the monitor with HR 70's. O2 sat 100% RA. VS stable.
[2024-10-15 08:09] VITALS: BP 131/85
--- NOTE | 2024-10-15 08:55 | W.PN.HOSP.TC ---
Today's Communication/Plan
-
discharge
Assessment / Plan
Assessment / Plan
Physical Exam
General: Well Developed, Well Nourished and No Apparent Distress
HEENT: NormoCephalic, Moist mucous membranes and Atraumatic
Respiratory: Clear
Cardiac: S1/S2 and Regular Rhythm; No Murmur or Rub
GI: Soft, Non Tender, Non Distended and Normal Bowel Sounds; No Organomegaly
Rectal: Deferred by Provider
Musculoskeletal: No Clubbing, No Cyanosis and No Edema
Skin: No Rash
Neuro: Nonfocal/grossly intact
# Recurrent chest pain - unlikely ACS
- Known HX CAD w/ multiple prior stents in RCA.
- Most recent cardiac catheterization from 2022 w/ stable moderate disease as above, managed medically.
- Negative serial troponin
- No chest pain over night
Women'S Apparel Salesperson did nuclear stress test, no new defects, fixed defect seen. Recommendation to increase metoprolol dose to twice daily and give as needed nitroglycerin tablet
Appreciate cardiology input
# Hyponatremia
mild
HLD with LDL 68 07/2024.
- Known HX statin intolerance
- c/w COAL SCREENER Praluent and Zetia
Pre existing condition
CAD
s/p STEMI with RCA PCI 07/2015
s/p RCA PCI x2 prox to prior RCA stent and circ stenosis with negative FFR 10/2015
s/p NSTEMI with PCI ostial and distal RCA x2 GUERDA 04/03/22
residual mod first diag, mid and distal circ stenosis, iFR negative, medically managed by cath 06/2022
HLD
HX statin intolerance
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
HTN
DDD s/p lumbar lami 2018
BPH
Mild-mod MR by echo 07/2023
Former smoker
PVCs
Restless leg syndrome
h/o L radial artery pseudoaneurysm
h/o vertigo
Anxiety
DVT Px: on Heparin gtt
Code: Full code
IVU
Total discharge time spent to see the patient, examine the patient, review data and lab results, discuss discharge plan with patient, nursing staff around 55 minutes
Anticipated Discharge: Today
Subjective/Interval History
-
Date of Service: October 15, 2024
no chest pain,
No shortness of breath. Would like to go
Objective Data
-
Labs:
Laboratory Results
10/15/24
04:31
WBC 5.2
Hgb 11.1 L
Hct 31.1 L
Plt Count 230
Vital Signs:
Vital Signs
Temp Pulse Resp BP Pulse Ox
98.6 F 60 18 129/73 99
10/15/24 08:11 10/15/24 04:30 10/15/24 08:11 10/15/24 04:26 10/15/24 08:11
I&O
10/14/24 10/15/24 10/16/24
06:59 06:59 06:59
Intake Total 70 / 70 480 / 480
Output Total 450 / 450
Balance -380 / -380 480 / 480
[2024-10-15] MEDS: ASPIR LOW (ENTERIC COATED) 81 MG PO (08:56)
[2024-10-15] MEDS: TOPROL XL 12.5 MG PO (08:56)
[2024-10-15] MEDS: FLUSH (NSS) 1 FLUSH IV (08:56)
--- NOTE | 2024-10-15 09:14 | PTCARENOTE ---
Received patient this morning oob in his room. Denies any chest pain or sob, waiting to be discharged home today.
--- NOTE | 2024-10-15 11:03 | PTOTSP ---
Chart reviewed, spoke with patient. Patient standing at the doorway, fully dressed and anticipates discharge home today. Patient denies issues with his mobility and is working with Outpatient on his walking and back pain. Patient denies concerns
regarding discharge home today. No PT needs identified, will sign off.
--- NOTE | 2024-10-15 11:14 | PTCARENOTE ---
Reviewed discharge instructions, follow up appointments and medication changes with the patient and he states his understanding. Patient discharged home with his .
--- NOTE | 2024-10-15 12:30 | CM ---
Patient for DC today.
There are no identified DC needs.
Plan- home, no needs.
--- NOTE | 2024-10-15 13:12 | W.DCSUMMARY ---
Discharge Summary
Discharge Data
Date of Admission: 10/13/24
Date of Discharge: 10/15/24
-
Pending Results: No
Hospital Course
74-year-old male presented with history of recurrent chest pain. Patient was evaluated by hand spring repairer. He did not have acute ischemic changes on EKG. Serial troponin remained negative. Blue Crabber on-call discussed with patient and primary
hand spring repairer and decided to do Lexiscan nuclear stress that showed fixed defect in the inferior and inferoseptal coronel likely suggestive of scar from prior myocardial infarction with no new reversible defects. Recommendation to increase the dose of
Toprol XL to 12.5 milligram twice a day and give a prescription for nitroglycerin tablets as needed. Echocardiogram showed normal left ventricular ejection fraction around 55 to 60% with mild concentric left ventricular hypertrophy. Patient did
not have recurrent chest pain in the hospital. Patient remained hemodynamically stable and was discharged home in a stable condition.
Discharge Plan
-
Patient Disposition: Home (Routine Discharge)
Discharge Diagnosis/Procedures: Chest pain status post Lexiscan nuclear stress test showed fixed defect in the inferior and inferoseptal coronel likely suggestive of scar from prior PA with no new reversible defects.
Diet: As tolerated
Referrals:
Wayne Galvan MD [Family Provider] -
Sandra Mcnamara CRNP [Specified Professional Personl] - 11/11/24 2:20 pm (You have a followup appointment with Dr Steele's nurse practitioner Sandra Mcnamara, at the [place] office. Please call with questions. )
Additional Discharge Medication Instructions: -Increase Toprol XL (metoprolol succinate) to 12.5 mg (1/2 of a 25 mg tablet) twice a day
-An updated prescription for nitroglycerin sublingual tablets was sent to your local pharmacy.
Prescriptions:
New
metoprolol succinate 25 mg Tablet Extended Release 24 Hr
12.5 mg PO BID Qty: 60 3RF
Continued
alprazolam 0.25 mg Tablet
0.125 mg PO BIDPRN PRN (Reason: vertigo or agitated sleep)
ascorbic acid (vitamin C) 500 mg Tablet
500 mg PO BID
coenzyme Q10 [CoQ-10] 100 mg Capsule
100 mg PO DAILY
aspirin 81 mg Tablet,Delayed Release (Dr/Ec)
81 mg PO DAILY
Myosedate
1 tab PO HSPRN PRN (Reason: sleep and muscle relaxation)
Praluent Pen 75 mg/mL pen injector
75 mg SC Q2W
acetaminophen 650 mg Tablet Extended Release
1,300 mg PO [id number] PRN (Reason: mild pain)
gabapentin [Neurontin] 600 mg Tablet
600 mg PO HS
clopidogrel [Plavix] 75 mg Tablet
75 mg PO QPM
ezetimibe [Zetia] 10 mg Tablet
5 mg PO HS
omega 3-czi-xid-fish oil [Fish Oil] 1,200 (144-216) mg Capsule
1 cap PO HS
Magnesium Maleate 180 MG capsule
360 mg PO BID
zinc 15 mg Tablet
30 mg PO DAILY
vitamin B complex Tablet
1 tab PO DAILY Qty: 0
Visbiome 112.5 billion cell Capsule
1 cap PO DAILY Qty: 0
vitamin D3-vit K1-vit MK4-MK7 50-500-1,500 mcg Capsule
1 cap PO DAILY Qty: 0
Wobenzym N
2 tab PO DAILY
Homocysteine Formula 0.8-50-100 mg-mg-mcg Tablet
1 tab PO NOON
Curcumin Evail
400 mg PO DAILY
nitroglycerin 0.4 mg Tablet, Sublingual
0.4 mg SUBLINGUAL [id number] PRN (Reason: CHEST PAIN) Qty: 25 3RF
Discontinued
metoprolol succinate [Toprol XL] 25 mg Tablet Extended Release 24 Hr
12.5 mg PO HS
Discharge Orders:
Discharge Patient (As Directed); Ordered 10/15/24
Ordered By: Star Larson
Discharge Date and Time
Discharge Date/Time: 10/15/24 11:16
Print Language: TURKISH
== END 2024-10-15 11:16 | disposition home or self-care (01) | DRG 313 ==
LOC: IVU 14:27
PROVIDERS: Internal Medicine Cardiovascular Disease; Physician Assistant; ADMITTING PHYSICIAN Internal Medicine; ATTENDING PHYSICIAN Internal Medicine; EMERGENCY PHYSICIAN Emergency Medicine; FAMILY PHYSICIAN Internal Medicine; OTHER PHYSICIAN Internal Medicine Interventional Cardiology
PROC: 4A12XM4 Monitoring of Cardiac Stress, External Approach (ICD-10-PCS; 2024-10-14)
PROC: 3E073KZ Introduction of Other Diagnostic Substance into Coronary Artery, Percutaneous Approach (ICD-10-PCS; 2024-10-14)
DX: R07.9 Chest pain, unspecified (principal); E87.1 Hypo-osmolality and hyponatremia; E78.00 Pure hypercholesterolemia, unspecified; Z87.891 Personal history of nicotine dependence; N40.0 Benign prostatic hyperplasia without lower urinary tract symptoms; G25.81 Restless legs syndrome; F41.9 Anxiety disorder, unspecified; I25.2 Old myocardial infarction; I25.10 Atherosclerotic heart disease of native coronary artery without angina pectoris; I10 Essential (primary) hypertension; Z79.02 Long term (current) use of antithrombotics/antiplatelets; Z79.82 Long term (current) use of aspirin; Z79.899 Other long term (current) drug therapy; Z88.8 Allergy status to other drugs, medicaments and biological substances; Z95.0 Presence of cardiac pacemaker; Z98.61 Coronary angioplasty status
CPT/HCPCS: 71045; 78452; 80053; 80061; 83036; 84484; 85025; 85027; 85730; 93005; 93017; 93306; 99291; A9500; J2785

== ENCOUNTER → 2025-03-21 13:34 | Outpatient (REF) | payer MEDICARE, OTHER, SELFPAY | LOC: MRI 13:34 | PROVIDERS: ATTENDING PHYSICIAN Student in an Organized Health Care Education/Training Program; FAMILY PHYSICIAN Internal Medicine | DX: M25.552 Pain in left hip (principal) | CPT/HCPCS: 73721 ==

== ENCOUNTER 2025-04-10 10:14 | Emergency (ER) | payer MEDICARE, OTHER, SELFPAY ==
[2025-04-10 10:17] VITALS: BP 138/91
--- NOTE | 2025-04-10 11:06 | ED.GENMED ---
History of Present Illness
General
Chief Complaint: Chest Pain
Source: patient
Exam Limitations: none
Time Seen by Provider: 04/10/25 11:06
History of Present Illness
History of Present Illness:
75-year-old male with intermittent episodes of chest tightness. This morning's episode at 5 AM. He took nitroglycerin at 6 AM with significant improvement. He had a dull ache or pressure since then. Has been getting this intermittently over the
last week. This episode was much worse. He has had ongoing similar issues in the past. In September there was a decision of stress nuclear versus diagnostic catheterization. Joint decision at that time was for the nuclear stress test. At the test was
unremarkable he knew but technically had a moderate risk for coronary disease.
Past History
Past History
ED Past Medical History: CAD, HTN, Hypercholesterolemia, AK and Other (Hyponatremia, MVP, vertigo, BPH, anxiety)
ED Past Surgical History: Cardiac (Cardiac catheterization 07/13/2015 mid RCA stent, Stents X2, AK with stenting x2 04/2022.) and Tonsilectomy
Social History
Tobacco: Former smoker
Alcohol: Occasional
Drug: None
Personal:
Living: with family
Employment: Retired
Family History
Family History: CAD
Review of Systems
Review of Systems
All Other Systems: Not applicable
Respiratory: Reports no symptoms
ABD/GI: Reports no symptoms
Phy Exam
Physical Exam
Physical Exam:
GENERAL: Alert and oriented in no apparent distress
EYE: Orbits normal.
NECK: Supple, no significant adenopathy.
ENT: Pharynx without erythema
CARDIAC: Regular rate and rhythm without any obvious murmurs. Pacer left upper chest wall
LUNGS: Clear breath sounds,normal
ABDOMEN: Soft, without focal tenderness or distention
NEUROLOGICAL: Alert and oriented , grossly non-focal
SKIN: Warm and dry, no rash or lesion, no discoloration, skin intact.
MUSCULOSKELETAL: No edema,no deformity.Good color
PSYCH: Normal and appropriate interaction.
Scores
Heart Score for Chest Pain Patients
STEMI patient?: No
History: Moderately Suspicious
ECG: Normal
Age: >/= 65 years
Risk Factors: >/= 3 Risk Factors or History of CAD
Troponin: </= Normal Limit
Heart Score for Chest Pain Patients: 5
Heart Score Risk: 20.3% MACE over next 6 weeks
Course
Orders/Labs/Results
Orders:
Orders
04/10/25 10:16
EKG [Electrocardiogram (*1)] Urgent
Reason for Study: Chest Pain
04/10/25 10:17
EKG- Treatment ONCE
04/10/25 11:16
Cardiac Monitoring- Treatment ONCE
IV Insert/Care/Rem.- Treatment PRN
Basic Metabolic Panel Urgent
Complete Blood Count/With Diff Urgent
Troponin I Urgent
CR Chest - 2 Views Urgent
Comment:
Reason For Exam: Intermittent chest pain
Pulse Ox/cont/shift [RESP] Stat
Quantity: 1
04/10/25 13:18
Electrocardiogram (*1) Stat
Reason for Study: Other
Other Reason for Exam: chest pain
EKG- Treatment ONCE
04/10/25 13:25
Troponin I Urgent
Abnormal Lab Results
04/10/25
11:16
RBC 3.69 L 10^6/uL
(4.70-6.10)
Hgb 11.8 L g/dL
(13.0-18.0)
Hct 33.5 L %
(39.0-52.0)
MCH 32.0 H pg
(27.0-31.0)
Absolute Monos (auto) 0.8 H 10^3/uL
(0.1-0.6)
Lymphocytes % 19.3 L %
(20.5-51.1)
Monocytes % 11.5 H %
(1.7-9.3)
Sodium 130 L mmol/L
(135-145)
Chloride 96 L mmol/L
(98-107)
04/10/25 11:16
04/10/25 11:16
Vital Signs
Initial and Last Documented VS:
Initial Vital Signs
Temp Pulse Resp BP Pulse Ox
97.4 F 76 16 138/91 96
04/10/25 10:17 04/10/25 10:17 04/10/25 10:17 04/10/25 10:17 04/10/25 10:17
Last Documented Vital Signs
Temp Pulse Resp BP Pulse Ox
97.4 F 60 21 161/95 99
04/10/25 10:17 04/10/25 13:45 04/10/25 13:45 04/10/25 13:00 04/10/25 13:45
MDM/Problems Addressed
Differential Diagnosis Includes:
Patient describing intermittent chest tightness. Much more severe today. History of coronary disease. Initial workup in progress. Will discuss with cardiology pending results
*Radiology
Radiology exam reviewed: radiology read reviewed (Negative)
*Pulse Oximetry
SaO2: 96
Oxygen Mode of Delivery: Room air
Patient hypoxic: no
*EKG
Interpreted by ED Provider?: Yes
Interpretation: abnormal
Comparison EKG: no changes
Heart Rate: 68
Rate: normal
Rhythm: av sequential
*Critical Care Note
Total Time (30-74mins, 75-104mins- exclusive of procedures): Not Applicable
Data Reviewed
Review of Other/Old Records Reveals: Labs, Records, Testing and Discharge Summary
Update Note
Update Note:
Patient asymptomatic. Repeat troponin normal. Repeat EKG stable. Brief V. tach March 26. No acute arrhythmias or pacer issues. Discussed options with patient of admission and further evaluation as an inpatient versus outpatient. He would
prefer outpatient follow-up and is asymptomatic. Discussed with cardiology who states is reasonable. They will contact him tomorrow for close follow-up
ED Attending Note
-
Portions of this chart may have been created with voice recognition software.� Occasional wrong word or��sound alike� substitutions may have occurred due to the inherent limitations of voice recognition software.
Discharge Plan
Departure
Patient Disposition: Home (Routine Discharge)
Date of Disposition: 04/10/25
Time of Disposition: 14:32
Patient with high blood pressure during this ER visit?: Yes
Discharge Problem:
Recurrent chest pain, History of RCA stenting, Mild hyponatremia
Instructions: Hyponatremia, Chest Pain DCA Follow Up, BLOOD PRESSURE
Prescriptions:
No Action
alprazolam 0.25 mg Tablet
0.125 mg PO BIDPRN PRN (Reason: vertigo or agitated sleep)
ascorbic acid (vitamin C) 500 mg Tablet
500 mg PO BID
coenzyme Q10 [CoQ-10] 100 mg Capsule
100 mg PO DAILY
aspirin 81 mg Tablet,Delayed Release (Dr/Ec)
81 mg PO DAILY
Myosedate
1 tab PO HSPRN PRN (Reason: sleep and muscle relaxation)
Praluent Pen 75 mg/mL pen injector
75 mg SC Q2W
acetaminophen 650 mg Tablet Extended Release
1,300 mg PO [id number] PRN (Reason: mild pain)
gabapentin [Neurontin] 600 mg Tablet
600 mg PO HS
clopidogrel [Plavix] 75 mg Tablet
75 mg PO QPM
ezetimibe [Zetia] 10 mg Tablet
5 mg PO HS
omega 3-dab-ibh-fish oil [Fish Oil] 1,200 (144-216) mg Capsule
1 cap PO HS
Magnesium Maleate 180 MG capsule
360 mg PO BID
zinc 15 mg Tablet
30 mg PO DAILY
vitamin B complex Tablet
1 tab PO DAILY Qty: 0
Visbiome 112.5 billion cell Capsule
1 cap PO DAILY Qty: 0
vitamin D3-vit K1-vit MK4-MK7 50-500-1,500 mcg Capsule
1 cap PO DAILY Qty: 0
Wobenzym N
2 tab PO DAILY
Homocysteine Formula 0.8-50-100 mg-mg-mcg Tablet
1 tab PO NOON
Curcumin Evail
400 mg PO DAILY
metoprolol succinate 25 mg Tablet Extended Release 24 Hr
12.5 mg PO BID Qty: 60 3RF
nitroglycerin 0.4 mg Tablet, Sublingual
0.4 mg SUBLINGUAL [id number] PRN (Reason: CHEST PAIN) Qty: 25 3RF
Referrals:
Wayne Galvan MD [Family Provider, Internal Medicine] - Follow up in 2-3 days
Activity Restrictions/Additional Instructions:
Talk to your cardiology group tomorrow for close follow-up
Interventions
Interventions:
*Risk Screen - Suicide Last Done: 04/10/25 10:17
*General Assessment Last Done: 04/10/25 11:19
*Neglect/Abuse Screening Last Done: 04/10/25 10:17
*ED- Fall Risk Assessment Last Done: 04/10/25 11:19
*ED COVID-19 Vaccine History Last Done: 04/10/25 11:19
*ED Influenza Vaccine History Last Done: 04/10/25 11:19
ED- Cardiac Assessment Last Done: 04/10/25 11:19
Discharge Date and Time
Print Language: ALBANIAN
[2025-04-10 11:19] VITALS: BMI 23.2
[2025-04-10 11:26] VITALS: BP 146/82
[2025-04-10 11:58] LABS: Hematocrit 33.5 % (39.0-52.0); Hemoglobin 11.8 g/dL (13.0-18.0); Mean Corp Hgb Conc. 35.2 g/dL (33.0-37.0); Mean Corpuscular Volume 90.8 fL (80.0-94.0); Nucleated Red Blood Cells % 0 % (-); Platelet Count 271 10^3/uL (130-400); Red Cell Dist. Width 11.8 % (11.5-14.5)
[2025-04-10 12:00] VITALS: BP 152/77
[2025-04-10 12:11] LABS: Blood Urea Nitrogen 17 mg/dl (9-20); Calcium 9.7 mg/dl (8.4-10.2); Carbon Dioxide 28 mmol/L (22-30); Chloride 96 mmol/L (98-107); Estimated Creatinine Clearance 73 ml/min; Glucose 86 mg/dl (70-99); Potassium 4.5 mmol/L (3.5-5.1); Sodium 130 mmol/L (135-145); eGFR > 60.00
[2025-04-10 12:18] LABS: Troponin I < 0.012 ng/ml
[2025-04-10 13:00] VITALS: BP 161/95
[2025-04-10 14:00] VITALS: BP 154/81
[2025-04-10 14:08] LABS: Troponin I < 0.012 ng/ml
== END 2025-04-10 14:38 | disposition home or self-care (01) ==
LOC: EMR 10:14
PROVIDERS: EMERGENCY PHYSICIAN Emergency Medicine; FAMILY PHYSICIAN Internal Medicine
DX: R07.89 Other chest pain (principal); Z95.5 Presence of coronary angioplasty implant and graft; E87.1 Hypo-osmolality and hyponatremia; I25.10 Atherosclerotic heart disease of native coronary artery without angina pectoris; I10 Essential (primary) hypertension; I34.1 Nonrheumatic mitral (valve) prolapse; E78.00 Pure hypercholesterolemia, unspecified; I25.2 Old myocardial infarction; F41.9 Anxiety disorder, unspecified; N40.0 Benign prostatic hyperplasia without lower urinary tract symptoms; Z79.82 Long term (current) use of aspirin; Z79.02 Long term (current) use of antithrombotics/antiplatelets; Z87.891 Personal history of nicotine dependence; Z82.49 Family history of ischemic heart disease and other diseases of the circulatory system
CPT/HCPCS: 99284; 71046; 80048; 84484; 85025; 93005